=== PATIENT | female | born 1965 | race African-American/Black ===

== ENCOUNTER 2023-05-11 07:39 | Inpatient (IN) | payer OTHER ==
[2023-05-11 09:20] LABS: BASO % 0.1 % (0-2.0); HEMATOCRIT 38.1 % (32.4-45.2); HEMOGLOBIN 12.1 GM/dL (10.7-15.3); LYMPH % 5.8 % (8-40); MCH 25.8 pg (25.7-33.7); MCHC 31.7 g/dl (32.0-36.0); MEAN CELL VOLUME 81.4 fl (80-96); MEAN PLT VOLUME 9.9 fl (7.5-11.1); NEUT % 87.1 % (42.8-82.8); PLATELET COUNT 245 10^3/uL (134-434); RBC 4.68 M/mm3 (3.60-5.2); RDW 22.8 % (11.6-15.6); WHITE BLOOD COUNT 17.4 K/mm3 (4.0-10.0)
[2023-05-11 09:21] LABS: VENOUS BASE EXCESS 2.8 mmol/L (-2-2); VENOUS O2 SATURATION 96.8 % (70-80); VENOUS PCO2 36.6 mmHg (38-52); VENOUS PH 7.473 (7.310-7.410)
[2023-05-11 09:26] LABS: INR 1.18 (0.83-1.09); PROTHROMBIN TIME (PATIENT) 13.7 SEC (9.7-13.0)
[2023-05-11 09:28] LABS: ACTIVATED PTT 24.9 SECONDS (25.2-36.5)
[2023-05-11] MEDS ORDERED: ACETAMINOPHEN 1000 MG/100 ML BAG IVPB ONE (09:40)
[2023-05-11 09:52] LABS: ANISOCYTOSIS 3+; MACROCYTOSIS 1+
[2023-05-11] MEDS ORDERED: VANCOMYCIN 1,000 MG in DEXTROSE 5%-WATER - 250 ML IVPB ONE (09:55)
[2023-05-11] MEDS ORDERED: PIPERACILLIN/TAZOB 4.5 GM 4.5 GM in DEXTROSE 5%-WATER 100 ML IVPB ONE (09:55)
[2023-05-11] MEDS ORDERED: AZITHROMYCIN IVPB 500 MG in DEXTROSE 5%-WATER - 250 ML IVPB ONE (09:56)
[2023-05-11 09:59] LABS: POTASSIUM 4.9 mmol/L (3.5-5.1)
[2023-05-11 10:02] LABS: ALBUMIN 2.1 g/dl (3.4-5.0); BLOOD UREA NITROGEN 9.9 mg/dL (7-18); CALCIUM 9.6 mg/dL (8.5-10.1); MAGNESIUM 1.8 mg/dL (1.8-2.4)
[2023-05-11 10:05] LABS: CREATININE 0.4 mg/dL (0.55-1.3)
[2023-05-11 10:06] LABS: TOT PROT 6.6 g/dl (6.4-8.2)
[2023-05-11 10:07] LABS: BILIRUBIN,TOTAL 0.8 mg/dL (0.2-1)
[2023-05-11] MEDS ORDERED: ACETAMINOPHEN INJECTION 100 ML IVPB ONE (10:09)
[2023-05-11 10:10] LABS: N-TERMINAL BNP 395.7 pg/ml (5-125)
[2023-05-11] MEDS ORDERED: VANCOMYCIN 1 GRAM (PRE-DOCKED) 1,000 MG/250 ML BAG IVPB ONE (10:10)
[2023-05-11] MEDS ORDERED: PIPERACILLIN/TAZOB 4.5 GM 4.5 GM/100 ML BAG IVPB ONE (10:10)
[2023-05-11] MEDS ORDERED: AZITHROMYCIN IVPB 500 MG/250 ML BAG IVPB ONE (10:25)
[2023-05-11] MEDS ORDERED: ALBUTEROL SO4 0.042% IH SOL 1.25 MG/3 ML VIAL.NEB NEB PRN (15:46)
[2023-05-11] MEDS ORDERED: ENOXAPARIN NA (PORCINE) 40 MG/0.4 ML DISP.SYRIN SQ ONE (16:33)
[2023-05-11] MEDS: ENOXAPARIN NA (PORCINE) 40 MG/0.4 ML DISP.SYRIN SQ SCH (16:52)
[2023-05-11] MEDS ORDERED: ACETAMINOPHEN 1000 MG/100 ML BAG IVPB PRN (17:36)
[2023-05-11] MEDS ORDERED: morphine SULFATE 4 MG/ML VIAL IVPUSH PRN (17:36)
[2023-05-11] MEDS ORDERED: morphine SULFATE 4 MG/ML VIAL ONE (17:45)
[2023-05-11 17:49] LABS: EPI CELLS 4 /uL (0-25.1); HYALINE CASTS 0 /uL (0-3.1); URINE APPEARANCE CLOUDY; URINE BACTERIA 3765 /uL (0-1359); URINE BILIRUBIN NEGATIVE (NEGATIVE); URINE COLOR DK YELLOW; URINE GLUCOSE (UA) NEGATIVE (NEGATIVE); URINE KETONE NEGATIVE (NEGATIVE); URINE LEUK ESTERASE 2+ (NEGATIVE); URINE NITRITE NEGATIVE (NEGATIVE); URINE PROTEIN TRACE (NEGATIVE); URINE RBC 38 /uL (0-23.9); URINE UROBILINOGEN 0.2 mg/dL (0.2-1.0); URINE WBC 10 /uL (0-25.8)
[2023-05-11] MEDS ORDERED: oxyCODONE HCL 5 MG TABLET PO PRN (17:58)
[2023-05-11] MEDS ORDERED: oxyCODONE HCL 5 MG TABLET ONE (18:03)
[2023-05-11 18:26] LABS: URINE CRYSTALS NEGATIVE /hpf
[2023-05-11] MEDS ORDERED: DOCUSATE SODIUM 100 MG CAPSULE (FP) PO SCH (22:00)
[2023-05-11] MEDS ORDERED: ATORVASTATIN CA 40 MG TABLET (FP) PO SCH (22:00)
[2023-05-11] MEDS ORDERED: ATORVASTATIN CA 40 MG TABLET (FP) ONE (22:17)
[2023-05-11] MEDS ORDERED: DOCUSATE SODIUM 100 MG CAPSULE (FP) PO ONE (22:18)
[2023-05-11] MEDS: BUDESONIDE/FORMETEROL FUMARATE 80/4.5 mcg INHALER IH SCH (22:34)
[2023-05-12 08:30] LABS: BASO % 0.2 % (0-2.0); EOS % 0.2 % (0-4.5); HEMATOCRIT 37.4 % (32.4-45.2); HEMOGLOBIN 11.5 GM/dL (10.7-15.3); LYMPH % 4.8 % (8-40); MCH 25.6 pg (25.7-33.7); MCHC 30.8 g/dl (32.0-36.0); MEAN CELL VOLUME 83.1 fl (80-96); MEAN PLT VOLUME 9.9 fl (7.5-11.1); MONO % 5.5 % (3.8-10.2); NEUT % 89.3 % (42.8-82.8); PLATELET COUNT 224 10^3/uL (134-434); RDW 21.1 % (11.6-15.6); WHITE BLOOD COUNT 16.2 K/mm3 (4.0-10.0)
[2023-05-12 08:46] LABS: POTASSIUM 3.5 mmol/L (3.5-5.1)
[2023-05-12 08:53] LABS: ALBUMIN 2.1 g/dl (3.4-5.0); CALCIUM 9.4 mg/dL (8.5-10.1); MAGNESIUM 1.7 mg/dL (1.8-2.4)
[2023-05-12 08:56] LABS: CREATININE 0.3 mg/dL (0.55-1.3); PHOSPHOROUS 3.3 mg/dL (2.5-4.9)
[2023-05-12 08:57] LABS: BILIRUBIN,TOTAL 0.7 mg/dL (0.2-1); TOT PROT 6.3 g/dl (6.4-8.2)
[2023-05-12] MEDS ORDERED: ASPIRIN 81 MG CHEWABLE TABLETS ONE (09:50)
[2023-05-12] MEDS ORDERED: CEFTRIAXONE 1 GM in DEXTROSE 5%-WATER - 50 ML IVPB SCH (10:00)
[2023-05-12] MEDS ORDERED: ASPIRIN 81 MG CHEWABLE TABLETS PO SCH (10:00)
[2023-05-12] MEDS ORDERED: AZITHROMYCIN IVPB 250 MG in DEXTROSE 5%-WATER - 250 ML IVPB SCH (10:00)
[2023-05-12] MEDS: BUDESONIDE/FORMETEROL FUMARATE 80/4.5 mcg INHALER IH SCH (11:12)
[2023-05-12] MEDS: ENOXAPARIN NA (PORCINE) 40 MG/0.4 ML DISP.SYRIN SQ SCH (11:12)
[2023-05-12 15:12] VITALS: BP 113/70; RESP 20; TEMP 97.8; BMI 22.4
[2023-05-12] MEDS ORDERED: PIPERACILLIN/TAZOB 3.375 GM 3.375 GM in DEXTROSE 5%-WATER - 50 ML IVPB SCH ×2 (15:15→16:00)
[2023-05-12 17:05] VITALS: PULSE 105
== END 2023-05-12 17:40 | disposition short-term general hospital (02) | DRG 136 ==
LOC: JER 07:39 → JERBED 12:45 → J4W 05-12 14:03
PROVIDERS: ADMIT Internal Medicine
DX: C34.90 Malignant neoplasm of unspecified part of unspecified bronchus or lung (principal); J96.21 Acute and chronic respiratory failure with hypoxia; R64 Cachexia; Z68.22 Body mass index [BMI] 22.0-22.9, adult
CPT/HCPCS: 0241U-QW; 36415; 70450-TC; 71045-TC-FY; 71275-TC; 80053; 81003; 82803; 83690; 83735; 83880; 84100; 84484; 85025; 85610; 85730; 86850; 86870; 86900; 86901; 86902; 87040; 87070; 87186; 87205; 93005; 93010; 99285-25; Q9967

== ENCOUNTER 2023-05-27 07:42 | Inpatient (IN) | payer OTHER ==
[2023-05-27] MEDS ORDERED: ACETAMINOPHEN 1000 MG/100 ML BAG IVPB ONE (08:15)
[2023-05-27] MEDS ORDERED: VANCOMYCIN 1,000 MG in DEXTROSE 5%-WATER - 250 ML IVPB ONE (08:15)
[2023-05-27] MEDS ORDERED: PIPERACILLIN/TAZOB 4.5 GM 4.5 GM in DEXTROSE 5%-WATER 100 ML IVPB ONE (08:15)
[2023-05-27] MEDS ORDERED: SODIUM CHLORIDE 0.9% 500 ML INFUS.BAG IV ONE ×3 (08:15→09:22)
[2023-05-27] MEDS ORDERED: PROPOFOL 1,000,000 MCG/100 ML VIAL ONE (08:16)
[2023-05-27] MEDS ORDERED: ACETAMINOPHEN INJECTION 100 ML IVPB ONE (08:18)
[2023-05-27] MEDS ORDERED: PIPERACILLIN/TAZOB 4.5 GM 4.5 GM/100 ML BAG IVPB ONE (08:18)
[2023-05-27] MEDS ORDERED: ROCURONIUM BROMIDE 50 MG/5 ML VIAL IVPUSH ONE (08:20)
[2023-05-27] MEDS ORDERED: ETOMIDATE 40 MG/20 ML VIAL IVPUSH ONE (08:20)
[2023-05-27 08:22] LABS: VENOUS BASE EXCESS -2.9 mmol/L (-2-2); VENOUS O2 SATURATION 79.5 % (70-80); VENOUS PCO2 47.7 mmHg (38-52); VENOUS PH 7.312 (7.310-7.410)
[2023-05-27 08:30] LABS: INR 1.25 (0.83-1.09); PROTHROMBIN TIME (PATIENT) 14.5 SEC (9.7-13.0)
[2023-05-27 08:33] LABS: ACTIVATED PTT 24.4 SECONDS (25.2-36.5)
[2023-05-27 08:43] LABS: HEMATOCRIT 34.9 % (32.4-45.2); HEMOGLOBIN 10.4 GM/dL (10.7-15.3); MCH 25.2 pg (25.7-33.7); MCHC 29.9 g/dl (32.0-36.0); MEAN CELL VOLUME 84.2 fl (80-96); MEAN PLT VOLUME 9.7 fl (7.5-11.1); PLATELET COUNT 399 10^3/uL (134-434); RBC 4.15 M/mm3 (3.60-5.2); RDW 21.5 % (11.6-15.6); WHITE BLOOD COUNT 27.4 K/mm3 (4.0-10.0)
[2023-05-27 08:44] LABS: POTASSIUM 4.4 mmol/L (3.5-5.1)
[2023-05-27] MEDS ORDERED: PROPOFOL 1,000,000 MCG/100 ML VIAL IVPB SCH (08:45)
[2023-05-27 08:46] LABS: CALCIUM 10.1 mg/dL (8.5-10.1)
[2023-05-27 08:47] LABS: ALBUMIN 1.8 g/dl (3.4-5.0); BLOOD UREA NITROGEN 16.9 mg/dL (7-18); MAGNESIUM 1.6 mg/dL (1.8-2.4)
[2023-05-27 08:50] LABS: CREATININE 0.9 mg/dL (0.55-1.3)
[2023-05-27 08:51] LABS: TOT PROT 6.9 g/dl (6.4-8.2)
[2023-05-27 08:52] LABS: BILIRUBIN,TOTAL 0.7 mg/dL (0.2-1)
[2023-05-27 09:12] LABS: LACTIC ACID 4.6 mmol/L (0.4-2.0)
[2023-05-27] MEDS ORDERED: MIDAZOLAM IN 0.9 % SOD.CHLORID 1 MG/1 ML PLAST..BAG ONE (09:28)
[2023-05-27] MEDS: MIDAZOLAM IN 0.9 % SOD.CHLORID 100 MG/100 ML PLAST..BAG IVPB SCH (09:39)
[2023-05-27] MEDS: PANTOPRAZOLE SODIUM 40 MG VIAL IVPUSH SCH (15:27)
[2023-05-27] MEDS: VANCOMYCIN/WATER FOR INJ (PEG) 1,000 MG/200 ML BAG IVPB SCH (15:27)
[2023-05-27] MEDS: ENOXAPARIN NA (PORCINE) 40 MG/0.4 ML DISP.SYRIN SQ SCH (15:27)
[2023-05-27] MEDS ORDERED: LACTATED RINGERS SOLUTION 1000 ML INFUS.BAG IV ONE (16:00)
[2023-05-27] MEDS ORDERED: PIPERACILLIN/TAZOB 4.5 GM 4.5 GM in DEXTROSE 5%-WATER 100 ML IVPB SCH ×2 (17:00→18:00)
[2023-05-27 17:09] LABS: ARTERIAL BLD GAS O2 SATURATION 98.3 % (95-98); ARTERIAL BLOOD GAS BASE EXCESS -3.9 mmol/L (-2-2); ARTERIAL BLOOD GAS pH 7.342 (7.350-7.450)
[2023-05-27 17:12] LABS: ALLENS TEST POSITIVE
[2023-05-27 17:13] LABS: VENT MODE A/C; VENT RATE 16
[2023-05-27] MEDS: ACETAMINOPHEN 650 MG/20.3 ML ORAL SOLUTION (CUPS) PO PRN (17:57)
[2023-05-27] MEDS: PIPERACILLIN/TAZOB 3.375 GM 3.375 GM in DEXTROSE 5%-WATER - 50 ML IVPB SCH (18:27)
[2023-05-27] MEDS ORDERED: LACTATED RINGERS SOLUTION 1,000 ML/1,000 ML INFUS.BAG IV STA (19:34)
[2023-05-27] MEDS: NOREPINEPHRINE 0.9 % NACL 8 MG/250 ML BAG IVPB SCH (19:55)
[2023-05-27 20:03] LABS: LACTIC ACID 2.5 mmol/L (0.4-2.0)
[2023-05-27 20:52] LABS: EPI CELLS >36 /uL (0-25.1); HYALINE CASTS 5 /uL (0-3.1); URINE APPEARANCE TURBID; URINE BILIRUBIN NEGATIVE (NEGATIVE); URINE COLOR YELLOW; URINE GLUCOSE (UA) NEGATIVE (NEGATIVE); URINE KETONE NEGATIVE (NEGATIVE); URINE LEUK ESTERASE TRACE (NEGATIVE); URINE NITRITE NEGATIVE (NEGATIVE); URINE PROTEIN 2+ (NEGATIVE); URINE RBC 18 /uL (0-23.9); URINE UROBILINOGEN 0.2 mg/dL (0.2-1.0); URINE WBC 210 /uL (0-25.8)
[2023-05-27] MEDS: CHLORHEXIDINE GLUCONATE 4% CLEANSER FOR DECOLONIZATION TP SCH (21:20)
[2023-05-27 21:22] LABS: URINE BACTERIA 10.3 /uL (0-1359)
[2023-05-27] MEDS: MUPIROCIN 2% TOPICAL OINTMENT FOR DECOLONIZATION NS SCH (21:42)
[2023-05-28] MEDS: PIPERACILLIN/TAZOB 3.375 GM 3.375 GM in DEXTROSE 5%-WATER - 50 ML IVPB SCH ×3 (02:55→17:28)
[2023-05-28] MEDS: VANCOMYCIN/WATER FOR INJ (PEG) 1,000 MG/200 ML BAG IVPB SCH ×2 (02:59→14:05)
[2023-05-28 06:34] LABS: ARTERIAL BLOOD GAS PO2 99.2 mmHg (80-100); ARTERIAL BLOOD GAS pH 7.305 (7.350-7.450)
[2023-05-28 06:44] LABS: ALLENS TEST POSITIVE
[2023-05-28 06:45] LABS: PT'S TEMP 99.6; VENT MODE A/C; VENT RATE 16
[2023-05-28] MEDS ORDERED: SODIUM CHLORIDE 1,000 ML IV ONE (08:00)
[2023-05-28] MEDS: FENTANYL NS IVPB 500 MCG/100 ML BAG IVPB SCH ×2 (08:37→18:22)
[2023-05-28 08:53] LABS: HEMATOCRIT 31.3 % (32.4-45.2); HEMOGLOBIN 9.5 GM/dL (10.7-15.3); MCH 25.7 pg (25.7-33.7); MCHC 30.5 g/dl (32.0-36.0); MEAN CELL VOLUME 84.1 fl (80-96); MEAN PLT VOLUME 9.5 fl (7.5-11.1); PLATELET COUNT 316 10^3/uL (134-434); RBC 3.72 M/mm3 (3.60-5.2); RDW 21.7 % (11.6-15.6); WHITE BLOOD COUNT 28.1 K/mm3 (4.0-10.0)
[2023-05-28 08:55] LABS: INR 1.22 (0.83-1.09); PROTHROMBIN TIME (PATIENT) 14.1 SEC (9.7-13.0)
[2023-05-28 09:02] LABS: POTASSIUM 3.2 mmol/L (3.5-5.1)
[2023-05-28 09:07] LABS: CALCIUM 9.3 mg/dL (8.5-10.1)
[2023-05-28 09:08] LABS: ALBUMIN 1.6 g/dl (3.4-5.0); BLOOD UREA NITROGEN 22.4 mg/dL (7-18); MAGNESIUM 1.4 mg/dL (1.8-2.4)
[2023-05-28 09:09] LABS: LACTIC ACID 2.6 mmol/L (0.4-2.0)
[2023-05-28 09:11] LABS: BILIRUBIN,TOTAL 0.4 mg/dL (0.2-1); PHOSPHOROUS 4.8 mg/dL (2.5-4.9); TOT PROT 5.8 g/dl (6.4-8.2)
[2023-05-28] MEDS: MIDAZOLAM IN 0.9 % SOD.CHLORID 100 MG/100 ML PLAST..BAG IVPB SCH (09:44)
[2023-05-28] MEDS: MUPIROCIN 2% TOPICAL OINTMENT FOR DECOLONIZATION NS SCH ×2 (09:45→21:11)
[2023-05-28] MEDS: PANTOPRAZOLE SODIUM 40 MG VIAL IVPUSH SCH (09:45)
[2023-05-28] MEDS: ENOXAPARIN NA (PORCINE) 40 MG/0.4 ML DISP.SYRIN SQ SCH (09:45)
[2023-05-28] MEDS ORDERED: MAGNESIUM SULFATE IN WATER 2 GM/50 ML IVPB IVPB ONE (10:00)
[2023-05-28] MEDS ORDERED: KCL 20 MEQ PREMIX BAG 100 ML IVPB SCH (10:15)
[2023-05-28] MEDS: ACETAMINOPHEN 650 MG/20.3 ML ORAL SOLUTION (CUPS) PO PRN (11:11)
[2023-05-28 13:53] LABS: LACTIC ACID 2.4 mmol/L (0.4-2.0)
[2023-05-28] MEDS: NOREPINEPHRINE 0.9 % NACL 8 MG/250 ML BAG IVPB SCH ×2 (18:12→20:11)
[2023-05-28] MEDS: CHLORHEXIDINE GLUCONATE 4% CLEANSER FOR DECOLONIZATION TP SCH (21:12)
[2023-05-29] MEDS: PIPERACILLIN/TAZOB 3.375 GM 3.375 GM in DEXTROSE 5%-WATER - 50 ML IVPB SCH ×3 (01:14→17:25)
[2023-05-29] MEDS: VANCOMYCIN/WATER FOR INJ (PEG) 1,000 MG/200 ML BAG IVPB SCH ×2 (02:03→14:01)
[2023-05-29] MEDS: ACETAMINOPHEN 650 MG/20.3 ML ORAL SOLUTION (CUPS) PO PRN ×2 (04:50→12:23)
[2023-05-29] MEDS: FENTANYL NS IVPB 500 MCG/100 ML BAG IVPB SCH ×4 (07:05→21:56)
[2023-05-29 08:16] LABS: HEMATOCRIT 29.6 % (32.4-45.2); HEMOGLOBIN 9.2 GM/dL (10.7-15.3); MEAN CELL VOLUME 83.8 fl (80-96); MEAN PLT VOLUME 9.4 fl (7.5-11.1); PLATELET COUNT 310 10^3/uL (134-434); RBC 3.53 M/mm3 (3.60-5.2); RDW 22.8 % (11.6-15.6); WHITE BLOOD COUNT 27.7 K/mm3 (4.0-10.0)
[2023-05-29 08:32] LABS: POTASSIUM 3.3 mmol/L (3.5-5.1)
[2023-05-29 08:34] LABS: BLOOD UREA NITROGEN 28.6 mg/dL (7-18); CALCIUM 9.2 mg/dL (8.5-10.1)
[2023-05-29 08:35] LABS: ALBUMIN 1.4 g/dl (3.4-5.0)
[2023-05-29 08:38] LABS: CREATININE 1.1 mg/dL (0.55-1.3); MAGNESIUM 1.9 mg/dL (1.8-2.4); PHOSPHOROUS 3.9 mg/dL (2.5-4.9)
[2023-05-29 08:39] LABS: BILIRUBIN,TOTAL 0.3 mg/dL (0.2-1); TOT PROT 5.6 g/dl (6.4-8.2)
[2023-05-29 09:03] LABS: ANISOCYTOSIS 3+; MACROCYTOSIS 0; TARGET CELLS 1+
[2023-05-29] MEDS: MUPIROCIN 2% TOPICAL OINTMENT FOR DECOLONIZATION NS SCH ×2 (09:11→21:12)
[2023-05-29] MEDS: PANTOPRAZOLE SODIUM 40 MG VIAL IVPUSH SCH (09:11)
[2023-05-29] MEDS: ENOXAPARIN NA (PORCINE) 40 MG/0.4 ML DISP.SYRIN SQ SCH (09:11)
[2023-05-29] MEDS: DEXTROSE 5%-WATER - 1,000 ML IV SCH (09:19)
[2023-05-29] MEDS ORDERED: KCL 10 MEQ IVPB 10 MEQ/100 ML INFUS.BAG IVPB SCH (09:30)
[2023-05-29] MEDS ORDERED: KCL 20 MEQ PREMIX BAG 100 ML IVPB ONE (10:00)
[2023-05-29] MEDS: MIDAZOLAM IN 0.9 % SOD.CHLORID 100 MG/100 ML PLAST..BAG IVPB SCH (10:11)
[2023-05-29] MEDS: NOREPINEPHRINE 0.9 % NACL 8 MG/250 ML BAG IVPB SCH ×2 (10:15→21:56)
[2023-05-29] MEDS ORDERED: ACETAMINOPHEN 325 MG TABLET (FP) PO ONE (15:39)
[2023-05-29 20:09] LABS: POTASSIUM 3.2 mmol/L (3.5-5.1)
[2023-05-29 20:11] LABS: BLOOD UREA NITROGEN 33.5 mg/dL (7-18); CALCIUM 9.7 mg/dL (8.5-10.1)
[2023-05-29] MEDS ORDERED: MAGNESIUM SULFATE IN WATER 2 GM/50 ML IVPB IVPB ONE (20:14)
[2023-05-29 20:15] LABS: CREATININE 1.2 mg/dL (0.55-1.3)
[2023-05-29] MEDS: KCL 20 MEQ PREMIX BAG 100 ML IVPB SCH ×2 (20:33→22:39)
[2023-05-29] MEDS: OLANZapine 10 MG TABLET GT SCH (21:12)
[2023-05-29] MEDS: CHLORHEXIDINE GLUCONATE 4% CLEANSER FOR DECOLONIZATION TP SCH (21:12)
[2023-05-29] MEDS: ACETAMINOPHEN 650 MG/20.3 ML ORAL SOLUTION (CUPS) GT PRN (23:17)
[2023-05-30] MEDS: VANCOMYCIN/WATER FOR INJ (PEG) 1,000 MG/200 ML BAG IVPB SCH (02:28)
[2023-05-30] MEDS: PIPERACILLIN/TAZOB 3.375 GM 3.375 GM in DEXTROSE 5%-WATER - 50 ML IVPB SCH ×3 (02:28→17:39)
[2023-05-30] MEDS: ACETAMINOPHEN 650 MG/20.3 ML ORAL SOLUTION (CUPS) GT PRN ×2 (05:51→15:10)
[2023-05-30 06:23] LABS: HEMATOCRIT 29.2 % (32.4-45.2); HEMOGLOBIN 8.5 GM/dL (10.7-15.3); MCHC 29.2 g/dl (32.0-36.0); MEAN CELL VOLUME 85.7 fl (80-96); MEAN PLT VOLUME 9.4 fl (7.5-11.1); PLATELET COUNT 277 10^3/uL (134-434); RDW 23.3 % (11.6-15.6); WHITE BLOOD COUNT 24.2 K/mm3 (4.0-10.0)
[2023-05-30] MEDS: DEXTROSE 5%-WATER - 1,000 ML IV SCH (06:44)
[2023-05-30] MEDS: FENTANYL NS IVPB 500 MCG/100 ML BAG IVPB SCH ×2 (06:46→15:11)
[2023-05-30 06:48] LABS: POTASSIUM 3.8 mmol/L (3.5-5.1)
[2023-05-30 06:53] LABS: CALCIUM 9.7 mg/dL (8.5-10.1)
[2023-05-30 06:54] LABS: ALBUMIN 1.4 g/dl (3.4-5.0); BLOOD UREA NITROGEN 40.6 mg/dL (7-18); MAGNESIUM 2.5 mg/dL (1.8-2.4)
[2023-05-30 06:57] LABS: CREATININE 1.3 mg/dL (0.55-1.3); PHOSPHOROUS 4.3 mg/dL (2.5-4.9)
[2023-05-30 06:58] LABS: BILIRUBIN,TOTAL 0.3 mg/dL (0.2-1); TOT PROT 5.7 g/dl (6.4-8.2)
[2023-05-30] MEDS: LACTATED RINGERS SOLUTION 1,000 ML/1,000 ML INFUS.BAG IV SCH (08:54)
[2023-05-30] MEDS: ENOXAPARIN NA (PORCINE) 40 MG/0.4 ML DISP.SYRIN SQ SCH (09:00)
[2023-05-30] MEDS: MUPIROCIN 2% TOPICAL OINTMENT FOR DECOLONIZATION NS SCH ×2 (09:00→21:12)
[2023-05-30] MEDS: PANTOPRAZOLE SODIUM 40 MG VIAL IVPUSH SCH (09:01)
[2023-05-30 09:43] LABS: EPI CELLS >36 /uL (0-25.1); HYALINE CASTS 10 /uL (0-3.1); URINE APPEARANCE TURBID; URINE BACTERIA 7 /uL (0-1359); URINE BILIRUBIN NEGATIVE (NEGATIVE); URINE COLOR YELLOW; URINE GLUCOSE (UA) NEGATIVE (NEGATIVE); URINE KETONE NEGATIVE (NEGATIVE); URINE LEUK ESTERASE NEGATIVE (NEGATIVE); URINE NITRITE NEGATIVE (NEGATIVE); URINE PROTEIN 2+ (NEGATIVE); URINE RBC 11 /uL (0-23.9); URINE UROBILINOGEN 0.2 mg/dL (0.2-1.0)
[2023-05-30] MEDS: DEXMEDETOMIDINE PREMIX 400 MCG/100 ML BAG IVPB SCH (09:58)
[2023-05-30 10:26] LABS: URINE CRYSTALS MANY /hpf; URINE WBC 117.3 /uL (0-25.8)
[2023-05-30] MEDS: NOREPINEPHRINE 0.9 % NACL 8 MG/250 ML BAG IVPB SCH (17:40)
[2023-05-30] MEDS: OLANZapine 10 MG TABLET GT SCH (21:13)
[2023-05-30] MEDS: CHLORHEXIDINE GLUCONATE 4% CLEANSER FOR DECOLONIZATION TP SCH (21:13)
[2023-05-31] MEDS: PIPERACILLIN/TAZOB 3.375 GM 3.375 GM in DEXTROSE 5%-WATER - 50 ML IVPB SCH ×3 (01:08→17:17)
[2023-05-31] MEDS: DEXMEDETOMIDINE PREMIX 400 MCG/100 ML BAG IVPB SCH ×2 (01:09→12:24)
[2023-05-31] MEDS: NOREPINEPHRINE 0.9 % NACL 8 MG/250 ML BAG IVPB SCH ×3 (06:30→22:56)
[2023-05-31] MEDS: LACTATED RINGERS SOLUTION 1,000 ML/1,000 ML INFUS.BAG IV SCH ×2 (06:31→17:18)
[2023-05-31 07:09] LABS: POTASSIUM 3.8 mmol/L (3.5-5.1)
[2023-05-31 07:13] LABS: CALCIUM 9.5 mg/dL (8.5-10.1)
[2023-05-31 07:14] LABS: ALBUMIN 1.3 g/dl (3.4-5.0); BLOOD UREA NITROGEN 50.8 mg/dL (7-18); MAGNESIUM 2.3 mg/dL (1.8-2.4)
[2023-05-31 07:17] LABS: CREATININE 1.4 mg/dL (0.55-1.3); PHOSPHOROUS 3.9 mg/dL (2.5-4.9)
[2023-05-31 07:18] LABS: BILIRUBIN,TOTAL 0.4 mg/dL (0.2-1); TOT PROT 5.5 g/dl (6.4-8.2)
[2023-05-31 07:41] LABS: MCH 25.2 pg (25.7-33.7); MCHC 29.7 g/dl (32.0-36.0); MEAN CELL VOLUME 84.8 fl (80-96); MEAN PLT VOLUME 9.1 fl (7.5-11.1); PLATELET COUNT 224 10^3/uL (134-434); RBC 3.18 M/mm3 (3.60-5.2); RDW 22.9 % (11.6-15.6); WHITE BLOOD COUNT 21.1 K/mm3 (4.0-10.0)
[2023-05-31] MEDS ORDERED: PROPOFOL 1,000,000 MCG/100 ML VIAL ONE (08:17)
[2023-05-31] MEDS: PANTOPRAZOLE SODIUM 40 MG VIAL IVPUSH SCH (09:34)
[2023-05-31] MEDS: MUPIROCIN 2% TOPICAL OINTMENT FOR DECOLONIZATION NS SCH ×2 (09:34→23:11)
[2023-05-31] MEDS: PROPOFOL 1,000,000 MCG/100 ML VIAL IVPB SCH ×2 (09:34→23:11)
[2023-05-31] MEDS ORDERED: KCL 10 MEQ IVPB 10 MEQ/100 ML INFUS.BAG IVPB SCH (09:45)
[2023-05-31 09:51] LABS: ANISOCYTOSIS 2+; MACROCYTOSIS 0
[2023-05-31 10:09] LABS: EPI CELLS 11 /uL (0-25.1); HYALINE CASTS 1 /uL (0-3.1); PH,URINE 5.5 (5.0-8.0); URINE APPEARANCE CLEAR; URINE BACTERIA 9 /uL (0-1359); URINE BILIRUBIN NEGATIVE (NEGATIVE); URINE COLOR YELLOW; URINE GLUCOSE (UA) NEGATIVE (NEGATIVE); URINE KETONE NEGATIVE (NEGATIVE); URINE LEUK ESTERASE NEGATIVE (NEGATIVE); URINE NITRITE NEGATIVE (NEGATIVE); URINE PROTEIN 2+ (NEGATIVE); URINE RBC 14 /uL (0-23.9); URINE UROBILINOGEN 0.2 mg/dL (0.2-1.0); URINE WBC 49 /uL (0-25.8)
[2023-05-31] MEDS: KCL 20 MEQ PREMIX BAG 100 ML IVPB SCH ×2 (10:25→12:18)
[2023-05-31] MEDS ORDERED: FENTANYL IVPB 500 MCG/100 ML BAG IVPB SCH (13:00)
[2023-05-31] MEDS: ACETAMINOPHEN 650 MG/20.3 ML ORAL SOLUTION (CUPS) GT PRN (13:26)
[2023-05-31 14:28] VITALS: BMI 22.3
[2023-05-31] MEDS: AMINO ACIDS/PROTEIN HYDROLYS 30 ML LIQUID.PKT PO SCH (17:17)
[2023-05-31] MEDS: OLANZapine 10 MG TABLET GT SCH (22:56)
[2023-05-31] MEDS: CHLORHEXIDINE GLUCONATE 4% CLEANSER FOR DECOLONIZATION TP SCH (23:12)
[2023-05-31] MEDS: FENTANYL NS IVPB 500 MCG/100 ML BAG IVPB SCH (23:14)
[2023-06-01] MEDS: PIPERACILLIN/TAZOB 3.375 GM 3.375 GM in DEXTROSE 5%-WATER - 50 ML IVPB SCH ×3 (02:03→18:11)
[2023-06-01 07:21] LABS: HEMATOCRIT 26.8 % (32.4-45.2); HEMOGLOBIN 7.9 GM/dL (10.7-15.3); MCH 24.9 pg (25.7-33.7); MCHC 29.7 g/dl (32.0-36.0); MEAN CELL VOLUME 84.1 fl (80-96); MEAN PLT VOLUME 9.8 fl (7.5-11.1); PLATELET COUNT 265 10^3/uL (134-434); RBC 3.18 M/mm3 (3.60-5.2); RDW 23.1 % (11.6-15.6); WHITE BLOOD COUNT 21.7 K/mm3 (4.0-10.0)
[2023-06-01 07:32] LABS: POTASSIUM 3.9 mmol/L (3.5-5.1)
[2023-06-01 07:34] LABS: CALCIUM 9.9 mg/dL (8.5-10.1)
[2023-06-01 07:35] LABS: ALBUMIN 1.3 g/dl (3.4-5.0); BLOOD UREA NITROGEN 51.7 mg/dL (7-18)
[2023-06-01 07:38] LABS: CREATININE 1.3 mg/dL (0.55-1.3)
[2023-06-01 07:40] LABS: BILIRUBIN,TOTAL 0.3 mg/dL (0.2-1); TOT PROT 5.4 g/dl (6.4-8.2)
[2023-06-01] MEDS: AMINO ACIDS/PROTEIN HYDROLYS 30 ML LIQUID.PKT PO SCH ×2 (08:52→18:11)
[2023-06-01] MEDS: LACTATED RINGERS SOLUTION 1,000 ML/1,000 ML INFUS.BAG IV SCH ×2 (08:52→22:00)
[2023-06-01] MEDS: PROPOFOL 1,000,000 MCG/100 ML VIAL IVPB SCH (08:52)
[2023-06-01] MEDS: DEXMEDETOMIDINE PREMIX 400 MCG/100 ML BAG IVPB SCH (08:53)
[2023-06-01] MEDS: NOREPINEPHRINE 0.9 % NACL 8 MG/250 ML BAG IVPB SCH (08:53)
[2023-06-01 08:54] LABS: ANISOCYTOSIS 1+; MACROCYTOSIS 0
[2023-06-01] MEDS: PANTOPRAZOLE SODIUM 40 MG VIAL IVPUSH SCH (09:46)
[2023-06-01] MEDS: MUPIROCIN 2% TOPICAL OINTMENT FOR DECOLONIZATION NS SCH (09:46)
[2023-06-01] MEDS ORDERED: HYDROmorphone HCl 2 MG/ML VIAL IVPUSH PRN (19:47)
[2023-06-01] MEDS: CHLORHEXIDINE GLUCONATE 4% CLEANSER FOR DECOLONIZATION TP SCH (21:19)
[2023-06-01] MEDS: OLANZapine 10 MG TABLET GT SCH (22:30)
[2023-06-02] MEDS: PIPERACILLIN/TAZOB 3.375 GM 3.375 GM in DEXTROSE 5%-WATER - 50 ML IVPB SCH ×3 (01:41→17:25)
[2023-06-02] MEDS: PROPOFOL 1,000,000 MCG/100 ML VIAL IVPB SCH ×3 (01:42→17:26)
[2023-06-02] MEDS: FENTANYL NS IVPB 500 MCG/100 ML BAG IVPB SCH ×2 (01:59→04:30)
[2023-06-02 07:22] LABS: HEMATOCRIT 24.7 % (32.4-45.2); HEMOGLOBIN 7.3 GM/dL (10.7-15.3); MCH 24.7 pg (25.7-33.7); MCHC 29.6 g/dl (32.0-36.0); MEAN CELL VOLUME 83.3 fl (80-96); MEAN PLT VOLUME 9.9 fl (7.5-11.1); PLATELET COUNT 256 10^3/uL (134-434); RBC 2.97 M/mm3 (3.60-5.2); WHITE BLOOD COUNT 16.7 K/mm3 (4.0-10.0)
[2023-06-02 07:45] LABS: POTASSIUM 3.1 mmol/L (3.5-5.1)
[2023-06-02 07:51] LABS: ALBUMIN 1.2 g/dl (3.4-5.0); CALCIUM 9.7 mg/dL (8.5-10.1)
[2023-06-02 07:52] LABS: BLOOD UREA NITROGEN 49.2 mg/dL (7-18); MAGNESIUM 1.9 mg/dL (1.8-2.4)
[2023-06-02 07:55] LABS: CREATININE 1.2 mg/dL (0.55-1.3)
[2023-06-02 07:56] LABS: BILIRUBIN,TOTAL 0.4 mg/dL (0.2-1); TOT PROT 5.2 g/dl (6.4-8.2)
[2023-06-02] MEDS: LACTATED RINGERS SOLUTION 1,000 ML/1,000 ML INFUS.BAG IV SCH ×2 (08:10→17:28)
[2023-06-02] MEDS: NOREPINEPHRINE 0.9 % NACL 8 MG/250 ML BAG IVPB SCH ×2 (08:10→08:58)
[2023-06-02] MEDS: AMINO ACIDS/PROTEIN HYDROLYS 30 ML LIQUID.PKT PO SCH ×2 (08:24→17:25)
[2023-06-02] MEDS: PANTOPRAZOLE SODIUM 40 MG VIAL IVPUSH SCH (09:41)
[2023-06-02] MEDS: DEXMEDETOMIDINE PREMIX 400 MCG/100 ML BAG IVPB SCH (09:42)
[2023-06-02] MEDS: KCL 20 MEQ PREMIX BAG 100 ML IVPB SCH ×2 (10:00→11:15)
[2023-06-02] MEDS: CHLORHEXIDINE GLUCONATE 4% CLEANSER FOR DECOLONIZATION TP SCH (22:50)
[2023-06-02] MEDS: OLANZapine 10 MG TABLET GT SCH (22:50)
[2023-06-03] MEDS: PIPERACILLIN/TAZOB 3.375 GM 3.375 GM in DEXTROSE 5%-WATER - 50 ML IVPB SCH ×3 (01:28→17:04)
[2023-06-03] MEDS: LACTATED RINGERS SOLUTION 1,000 ML/1,000 ML INFUS.BAG IV SCH ×4 (03:40→23:00)
[2023-06-03 06:35] LABS: HEMATOCRIT 25.2 % (32.4-45.2); HEMOGLOBIN 7.4 GM/dL (10.7-15.3); MCH 24.7 pg (25.7-33.7); MCHC 29.5 g/dl (32.0-36.0); MEAN CELL VOLUME 83.6 fl (80-96); MEAN PLT VOLUME 9.9 fl (7.5-11.1); PLATELET COUNT 308 10^3/uL (134-434); RBC 3.01 M/mm3 (3.60-5.2); RDW 23.5 % (11.6-15.6); WHITE BLOOD COUNT 18.2 K/mm3 (4.0-10.0)
[2023-06-03] MEDS: FENTANYL NS IVPB 500 MCG/100 ML BAG IVPB SCH ×2 (06:38→23:57)
[2023-06-03] MEDS: PROPOFOL 1,000,000 MCG/100 ML VIAL IVPB SCH ×2 (06:39→08:35)
[2023-06-03 07:00] LABS: POTASSIUM 3.3 mmol/L (3.5-5.1)
[2023-06-03 07:15] LABS: ALBUMIN 1.3 g/dl (3.4-5.0); BLOOD UREA NITROGEN 41.9 mg/dL (7-18); PHOSPHOROUS 2.9 mg/dL (2.5-4.9)
[2023-06-03 07:17] LABS: BILIRUBIN,TOTAL 0.3 mg/dL (0.2-1); CALCIUM 9.2 mg/dL (8.5-10.1); CREATININE 0.9 mg/dL (0.55-1.3); TOT PROT 5.3 g/dl (6.4-8.2)
[2023-06-03 07:18] LABS: MAGNESIUM 1.6 mg/dL (1.8-2.4)
[2023-06-03] MEDS: AMINO ACIDS/PROTEIN HYDROLYS 30 ML LIQUID.PKT PO SCH ×2 (08:34→17:04)
[2023-06-03] MEDS: PANTOPRAZOLE SODIUM 40 MG VIAL IVPUSH SCH (09:10)
[2023-06-03] MEDS: NOREPINEPHRINE 0.9 % NACL 8 MG/250 ML BAG IVPB SCH (09:48)
[2023-06-03] MEDS: DEXMEDETOMIDINE PREMIX 400 MCG/100 ML BAG IVPB SCH ×2 (09:49→12:34)
[2023-06-03] MEDS: KCL 20 MEQ PREMIX BAG 100 ML IVPB SCH ×3 (10:08→12:11)
[2023-06-03] MEDS: ACETAMINOPHEN 650 MG/20.3 ML ORAL SOLUTION (CUPS) GT PRN ×2 (13:46→23:56)
[2023-06-03] MEDS: OLANZapine 10 MG TABLET GT SCH (21:29)
[2023-06-03] MEDS: CHLORHEXIDINE GLUCONATE 4% CLEANSER FOR DECOLONIZATION TP SCH (21:29)
[2023-06-04] MEDS: PIPERACILLIN/TAZOB 3.375 GM 3.375 GM in DEXTROSE 5%-WATER - 50 ML IVPB SCH ×3 (01:21→17:10)
[2023-06-04] MEDS: FENTANYL NS IVPB 500 MCG/100 ML BAG IVPB SCH (05:00)
[2023-06-04 06:15] LABS: HEMATOCRIT 25.1 % (32.4-45.2); HEMOGLOBIN 7.3 GM/dL (10.7-15.3); MCH 24.8 pg (25.7-33.7); MCHC 29.3 g/dl (32.0-36.0); MEAN CELL VOLUME 84.5 fl (80-96); MEAN PLT VOLUME 9.4 fl (7.5-11.1); PLATELET COUNT 332 10^3/uL (134-434); RBC 2.97 M/mm3 (3.60-5.2); RDW 23.5 % (11.6-15.6); WHITE BLOOD COUNT 21.6 K/mm3 (4.0-10.0)
[2023-06-04 06:37] LABS: POTASSIUM 3.9 mmol/L (3.5-5.1)
[2023-06-04 06:40] LABS: CALCIUM 9.1 mg/dL (8.5-10.1)
[2023-06-04 06:41] LABS: BLOOD UREA NITROGEN 39.2 mg/dL (7-18); MAGNESIUM 1.5 mg/dL (1.8-2.4)
[2023-06-04 06:44] LABS: PHOSPHOROUS 4.2 mg/dL (2.5-4.9)
[2023-06-04] MEDS: PANTOPRAZOLE SODIUM 40 MG VIAL IVPUSH SCH (09:23)
[2023-06-04] MEDS: LACTATED RINGERS SOLUTION 1,000 ML/1,000 ML INFUS.BAG IV SCH (09:23)
[2023-06-04] MEDS: AMINO ACIDS/PROTEIN HYDROLYS 30 ML LIQUID.PKT PO SCH ×2 (09:23→17:10)
[2023-06-04] MEDS ORDERED: MAGNESIUM SULFATE IN WATER 2 GM/50 ML IVPB IVPB ONE (09:40)
[2023-06-04] MEDS ORDERED: ENOXAPARIN NA (PORCINE) 40 MG/0.4 ML DISP.SYRIN SQ SCH (10:00)
[2023-06-04] MEDS: VANCOMYCIN/WATER FOR INJ (PEG) 1,000 MG/200 ML BAG IVPB SCH (14:33)
[2023-06-04] MEDS: DEXMEDETOMIDINE PREMIX 400 MCG/100 ML BAG IVPB SCH (17:10)
[2023-06-04] MEDS: NOREPINEPHRINE 0.9 % NACL 8 MG/250 ML BAG IVPB SCH (17:15)
[2023-06-04] MEDS: CHLORHEXIDINE GLUCONATE 4% CLEANSER FOR DECOLONIZATION TP SCH (21:09)
[2023-06-04] MEDS: OLANZapine 10 MG TABLET GT SCH (21:09)
[2023-06-04] MEDS: ACETAMINOPHEN 650 MG/20.3 ML ORAL SOLUTION (CUPS) GT PRN (21:10)
[2023-06-05] MEDS: PIPERACILLIN/TAZOB 3.375 GM 3.375 GM in DEXTROSE 5%-WATER - 50 ML IVPB SCH ×3 (02:16→18:08)
[2023-06-05] MEDS: FENTANYL NS IVPB 500 MCG/100 ML BAG IVPB SCH ×2 (02:35→21:16)
[2023-06-05 06:06] LABS: ARTERIAL BLD GAS O2 SATURATION 98.2 % (95-98); ARTERIAL BLOOD GAS BASE EXCESS -5.1 mmol/L (-2-2); ARTERIAL BLOOD GAS PO2 132.9 mmHg (80-100); ARTERIAL BLOOD GAS pH 7.261 (7.350-7.450)
[2023-06-05 06:07] LABS: VENT MODE A/C; VENT RATE 16
[2023-06-05] MEDS: ACETAMINOPHEN 650 MG/20.3 ML ORAL SOLUTION (CUPS) GT PRN (06:20)
[2023-06-05 07:21] LABS: HEMATOCRIT 22.1 % (32.4-45.2); MCH 25.2 pg (25.7-33.7); MCHC 29.8 g/dl (32.0-36.0); MEAN CELL VOLUME 84.6 fl (80-96); MEAN PLT VOLUME 9.7 fl (7.5-11.1); PLATELET COUNT 301 10^3/uL (134-434); RBC 2.62 M/mm3 (3.60-5.2); RDW 23.5 % (11.6-15.6); WHITE BLOOD COUNT 18.2 K/mm3 (4.0-10.0)
[2023-06-05 07:34] LABS: HEMOGLOBIN 6.6 GM/dL (10.7-15.3)
[2023-06-05 07:55] LABS: POTASSIUM 3.9 mmol/L (3.5-5.1)
[2023-06-05 08:00] LABS: ALBUMIN 1.2 g/dl (3.4-5.0)
[2023-06-05 08:01] LABS: BLOOD UREA NITROGEN 42.4 mg/dL (7-18)
[2023-06-05 08:02] LABS: MAGNESIUM 1.9 mg/dL (1.8-2.4)
[2023-06-05 08:03] LABS: PHOSPHOROUS 4.9 mg/dL (2.5-4.9)
[2023-06-05 08:05] LABS: BILIRUBIN,TOTAL 0.2 mg/dL (0.2-1); TOT PROT 5.1 g/dl (6.4-8.2)
[2023-06-05] MEDS ORDERED: DEXTROSE 5%-WATER - 1,000 ML IV SCH (08:30)
[2023-06-05] MEDS: PANTOPRAZOLE SODIUM 40 MG VIAL IVPUSH SCH (09:06)
[2023-06-05] MEDS: AMINO ACIDS/PROTEIN HYDROLYS 30 ML LIQUID.PKT PO SCH ×2 (09:06→18:08)
[2023-06-05] MEDS: PROPOFOL 1,000,000 MCG/100 ML VIAL IVPB SCH (11:40)
[2023-06-05] MEDS: DEXMEDETOMIDINE PREMIX 400 MCG/100 ML BAG IVPB SCH (12:52)
[2023-06-05] MEDS: VANCOMYCIN/WATER FOR INJ (PEG) 1,000 MG/200 ML BAG IVPB SCH (16:15)
[2023-06-05] MEDS: NOREPINEPHRINE BITARTRATE/D5W 8 MG/250 ML BAG IVPB SCH (21:16)
[2023-06-05] MEDS: CHLORHEXIDINE GLUCONATE 4% CLEANSER FOR DECOLONIZATION TP SCH (21:16)
[2023-06-05] MEDS: OLANZapine 10 MG TABLET GT SCH (21:16)
[2023-06-06] MEDS: PIPERACILLIN/TAZOB 3.375 GM 3.375 GM in DEXTROSE 5%-WATER - 50 ML IVPB SCH ×3 (02:43→17:03)
[2023-06-06] MEDS: FENTANYL NS IVPB 500 MCG/100 ML BAG IVPB SCH ×2 (05:12→17:01)
[2023-06-06 07:22] LABS: HEMATOCRIT 26.4 % (32.4-45.2); HEMOGLOBIN 7.8 GM/dL (10.7-15.3); MCH 25.2 pg (25.7-33.7); MCHC 29.6 g/dl (32.0-36.0); MEAN CELL VOLUME 85.1 fl (80-96); MEAN PLT VOLUME 9.7 fl (7.5-11.1); PLATELET COUNT 387 10^3/uL (134-434); RBC 3.11 M/mm3 (3.60-5.2); RDW 22.1 % (11.6-15.6); WHITE BLOOD COUNT 23.1 K/mm3 (4.0-10.0)
[2023-06-06 07:53] LABS: POTASSIUM 3.9 mmol/L (3.5-5.1)
[2023-06-06 07:56] LABS: BLOOD UREA NITROGEN 47.9 mg/dL (7-18); CALCIUM 8.8 mg/dL (8.5-10.1); MAGNESIUM 1.8 mg/dL (1.8-2.4)
[2023-06-06 07:57] LABS: ALBUMIN 1.2 g/dl (3.4-5.0)
[2023-06-06 07:59] LABS: PHOSPHOROUS 5.9 mg/dL (2.5-4.9)
[2023-06-06 08:00] LABS: CREATININE 1.1 mg/dL (0.55-1.3)
[2023-06-06 08:01] LABS: BILIRUBIN,TOTAL 0.4 mg/dL (0.2-1); TOT PROT 5.5 g/dl (6.4-8.2)
[2023-06-06] MEDS: AMINO ACIDS/PROTEIN HYDROLYS 30 ML LIQUID.PKT PO SCH ×2 (09:44→17:01)
[2023-06-06] MEDS: PANTOPRAZOLE SODIUM 40 MG VIAL IVPUSH SCH (09:44)
[2023-06-06] MEDS: DEXMEDETOMIDINE PREMIX 400 MCG/100 ML BAG IVPB SCH (09:44)
[2023-06-06] MEDS: VANCOMYCIN/WATER FOR INJ (PEG) 1,000 MG/200 ML BAG IVPB SCH (14:01)
[2023-06-06] MEDS: NOREPINEPHRINE BITARTRATE/D5W 8 MG/250 ML BAG IVPB SCH ×2 (16:58→20:25)
[2023-06-06] MEDS: PROPOFOL 1,000,000 MCG/100 ML VIAL IVPB SCH (17:00)
[2023-06-06] MEDS: ACETAMINOPHEN 650 MG/20.3 ML ORAL SOLUTION (CUPS) GT PRN (17:04)
[2023-06-06] MEDS: OLANZapine 10 MG TABLET GT SCH (21:39)
[2023-06-06] MEDS: CHLORHEXIDINE GLUCONATE 4% CLEANSER FOR DECOLONIZATION TP SCH (21:39)
[2023-06-07] MEDS: FENTANYL NS IVPB 500 MCG/100 ML BAG IVPB SCH ×4 (01:00→22:07)
[2023-06-07] MEDS: PIPERACILLIN/TAZOB 3.375 GM 3.375 GM in DEXTROSE 5%-WATER - 50 ML IVPB SCH ×3 (01:09→17:45)
[2023-06-07 07:46] LABS: HEMATOCRIT 26.1 % (32.4-45.2); HEMOGLOBIN 7.8 GM/dL (10.7-15.3); MCH 25.5 pg (25.7-33.7); MCHC 29.9 g/dl (32.0-36.0); MEAN CELL VOLUME 85.4 fl (80-96); MEAN PLT VOLUME 9.6 fl (7.5-11.1); PLATELET COUNT 399 10^3/uL (134-434); RBC 3.05 M/mm3 (3.60-5.2); WHITE BLOOD COUNT 24.2 K/mm3 (4.0-10.0)
[2023-06-07 08:15] LABS: POTASSIUM 3.9 mmol/L (3.5-5.1)
[2023-06-07 08:18] LABS: CALCIUM 9.1 mg/dL (8.5-10.1); MAGNESIUM 2.1 mg/dL (1.8-2.4)
[2023-06-07 08:20] LABS: ALBUMIN 1.2 g/dl (3.4-5.0)
[2023-06-07 08:22] LABS: PHOSPHOROUS 6.6 mg/dL (2.5-4.9)
[2023-06-07 08:23] LABS: BILIRUBIN,TOTAL 0.5 mg/dL (0.2-1); CREATININE 1.2 mg/dL (0.55-1.3); TOT PROT 5.7 g/dl (6.4-8.2)
[2023-06-07] MEDS: PANTOPRAZOLE SODIUM 40 MG VIAL IVPUSH SCH (09:28)
[2023-06-07] MEDS: AMINO ACIDS/PROTEIN HYDROLYS 30 ML LIQUID.PKT PO SCH ×2 (09:28→17:36)
[2023-06-07] MEDS: VANCOMYCIN/WATER FOR INJ (PEG) 1,000 MG/200 ML BAG IVPB SCH (13:48)
[2023-06-07] MEDS: NOREPINEPHRINE BITARTRATE/D5W 8 MG/250 ML BAG IVPB SCH ×2 (13:49→22:05)
[2023-06-07] MEDS: PROPOFOL 1,000,000 MCG/100 ML VIAL IVPB SCH (16:20)
[2023-06-07] MEDS: DEXMEDETOMIDINE PREMIX 400 MCG/100 ML BAG IVPB SCH (17:36)
[2023-06-07] MEDS: CHLORHEXIDINE GLUCONATE 4% CLEANSER FOR DECOLONIZATION TP SCH (22:05)
[2023-06-07] MEDS: OLANZapine 10 MG TABLET GT SCH (22:10)
[2023-06-08] MEDS: ACETAMINOPHEN 650 MG/20.3 ML ORAL SOLUTION (CUPS) GT PRN (00:56)
[2023-06-08] MEDS: PIPERACILLIN/TAZOB 3.375 GM 3.375 GM in DEXTROSE 5%-WATER - 50 ML IVPB SCH ×3 (01:47→19:25)
[2023-06-08] MEDS ORDERED: ACETAMINOPHEN 1000 MG/100 ML BAG IVPB ONE (03:22)
[2023-06-08 07:10] LABS: HEMATOCRIT 24.4 % (32.4-45.2); HEMOGLOBIN 7.2 GM/dL (10.7-15.3); MCH 25.1 pg (25.7-33.7); MCHC 29.5 g/dl (32.0-36.0); MEAN PLT VOLUME 9.5 fl (7.5-11.1); PLATELET COUNT 389 10^3/uL (134-434); RBC 2.87 M/mm3 (3.60-5.2); RDW 22.6 % (11.6-15.6); WHITE BLOOD COUNT 22.9 K/mm3 (4.0-10.0)
[2023-06-08 07:40] LABS: POTASSIUM 3.7 mmol/L (3.5-5.1)
[2023-06-08 07:48] LABS: CALCIUM 9.4 mg/dL (8.5-10.1); PHOSPHOROUS 6.2 mg/dL (2.5-4.9)
[2023-06-08 07:49] LABS: ALBUMIN 1.1 g/dl (3.4-5.0); BLOOD UREA NITROGEN 54.3 mg/dL (7-18); CREATININE 1.3 mg/dL (0.55-1.3)
[2023-06-08 07:50] LABS: BILIRUBIN,TOTAL 0.5 mg/dL (0.2-1); TOT PROT 5.5 g/dl (6.4-8.2)
[2023-06-08] MEDS ORDERED: DEXTROSE 50%-WATER - 25 GM/50 ML VIAL IVPUSH ONE (08:09)
[2023-06-08] MEDS ORDERED: DEXTROSE 50%-WATER 25 GM/50 ML DISP.SYRIN ONE (08:13)
[2023-06-08] MEDS ORDERED: DEXTROSE 5%-WATER - 1,000 ML IV SCH (08:15)
[2023-06-08] MEDS: AMINO ACIDS/PROTEIN HYDROLYS 30 ML LIQUID.PKT PO SCH ×2 (10:17→19:25)
[2023-06-08] MEDS: PANTOPRAZOLE SODIUM 40 MG VIAL IVPUSH SCH (10:18)
[2023-06-08] MEDS: PROPOFOL 1,000,000 MCG/100 ML VIAL IVPB SCH (13:04)
[2023-06-08] MEDS ORDERED: INSULIN (NOVOLOG) ASPART 100 UNITS/ML 10ML VIAL SQ ONE (13:40)
[2023-06-08] MEDS ORDERED: INSULIN (LEVEMIR) 100 UNITS/ML UNITS SQ ONE (13:40)
[2023-06-08] MEDS: DEXTROSE 5%-WATER - 1,000 ML IV SCH (15:57)
[2023-06-08] MEDS: DEXMEDETOMIDINE PREMIX 400 MCG/100 ML BAG IVPB SCH (15:59)
[2023-06-08 19:55] LABS: HEMATOCRIT 24.2 % (32.4-45.2); HEMOGLOBIN 7.2 GM/dL (10.7-15.3); MCH 25.1 pg (25.7-33.7); MCHC 29.7 g/dl (32.0-36.0); MEAN CELL VOLUME 84.5 fl (80-96); MEAN PLT VOLUME 9.2 fl (7.5-11.1); PLATELET COUNT 377 10^3/uL (134-434); RBC 2.86 M/mm3 (3.60-5.2); RDW 22.5 % (11.6-15.6); WHITE BLOOD COUNT 23.1 K/mm3 (4.0-10.0)
[2023-06-08] MEDS: CHLORHEXIDINE GLUCONATE 4% CLEANSER FOR DECOLONIZATION TP SCH (21:13)
[2023-06-08] MEDS: OLANZapine 10 MG TABLET GT SCH (21:14)
[2023-06-08] MEDS: NOREPINEPHRINE BITARTRATE/D5W 8 MG/250 ML BAG IVPB SCH (21:51)
[2023-06-08] MEDS: FENTANYL NS IVPB 500 MCG/100 ML BAG IVPB SCH (21:52)
[2023-06-09] MEDS: PIPERACILLIN/TAZOB 3.375 GM 3.375 GM in DEXTROSE 5%-WATER - 50 ML IVPB SCH ×2 (01:07→09:36)
[2023-06-09 08:08] LABS: HEMATOCRIT 23.6 % (32.4-45.2); MCH 25.4 pg (25.7-33.7); MCHC 29.5 g/dl (32.0-36.0); MEAN CELL VOLUME 85.8 fl (80-96); MEAN PLT VOLUME 9.6 fl (7.5-11.1); PLATELET COUNT 382 10^3/uL (134-434); RBC 2.75 M/mm3 (3.60-5.2); RDW 23.4 % (11.6-15.6); WHITE BLOOD COUNT 21.1 K/mm3 (4.0-10.0)
[2023-06-09 08:41] LABS: POTASSIUM 3.4 mmol/L (3.5-5.1)
[2023-06-09 08:43] LABS: CALCIUM 8.8 mg/dL (8.5-10.1)
[2023-06-09 08:44] LABS: ALBUMIN 1.2 g/dl (3.4-5.0); BLOOD UREA NITROGEN 53.6 mg/dL (7-18); MAGNESIUM 2.1 mg/dL (1.8-2.4)
[2023-06-09 08:47] LABS: CREATININE 1.5 mg/dL (0.55-1.3); PHOSPHOROUS 6.3 mg/dL (2.5-4.9)
[2023-06-09 08:48] LABS: BILIRUBIN,TOTAL 0.3 mg/dL (0.2-1)
[2023-06-09 08:49] LABS: TOT PROT 5.5 g/dl (6.4-8.2)
[2023-06-09] MEDS: PANTOPRAZOLE SODIUM 40 MG VIAL IVPUSH SCH (09:36)
[2023-06-09] MEDS: AMINO ACIDS/PROTEIN HYDROLYS 30 ML LIQUID.PKT PO SCH ×2 (09:36→17:55)
[2023-06-09] MEDS ORDERED: KCL 20 MEQ PREMIX BAG 100 ML IVPB ONE (10:00)
[2023-06-09] MEDS: MIDODRINE HCL 2.5 MG TABLET PO SCH ×2 (13:30→17:56)
[2023-06-09] MEDS: PROPOFOL 1,000,000 MCG/100 ML VIAL IVPB SCH (17:55)
[2023-06-09] MEDS: DEXMEDETOMIDINE PREMIX 400 MCG/100 ML BAG IVPB SCH (17:56)
[2023-06-09] MEDS: DEXTROSE 5%-WATER - 1,000 ML IV SCH (17:56)
[2023-06-09] MEDS: OLANZapine 10 MG TABLET GT SCH (21:05)
[2023-06-09] MEDS: CHLORHEXIDINE GLUCONATE 4% CLEANSER FOR DECOLONIZATION TP SCH (21:05)
[2023-06-10] MEDS: NOREPINEPHRINE BITARTRATE/D5W 8 MG/250 ML BAG IVPB SCH ×2 (06:35→21:24)
[2023-06-10] MEDS: FENTANYL NS IVPB 500 MCG/100 ML BAG IVPB SCH ×3 (06:36→21:25)
[2023-06-10] MEDS: DEXTROSE 5%-WATER - 1,000 ML IV SCH (07:30)
[2023-06-10] MEDS ORDERED: POTASSIUM CHLORIDE ORAL LIQUID 20 MEQ/15 ML PO ONE (09:00)
[2023-06-10] MEDS: AMINO ACIDS/PROTEIN HYDROLYS 30 ML LIQUID.PKT PO SCH ×2 (09:45→18:22)
[2023-06-10] MEDS: CEFTRIAXONE 2 GM in DEXTROSE 5%-WATER 100 ML IVPB SCH (09:46)
[2023-06-10] MEDS: PANTOPRAZOLE SODIUM 40 MG VIAL IVPUSH SCH (09:49)
[2023-06-10] MEDS: MIDODRINE HCL 2.5 MG TABLET PO SCH (09:50)
[2023-06-10] MEDS: MIDODRINE HCL 5 MG TABLET PO SCH ×2 (12:15→21:40)
[2023-06-10] MEDS: PROPOFOL 1,000,000 MCG/100 ML VIAL IVPB SCH (15:00)
[2023-06-10] MEDS: DEXMEDETOMIDINE PREMIX 400 MCG/100 ML BAG IVPB SCH (21:22)
[2023-06-10] MEDS: CHLORHEXIDINE GLUCONATE 4% CLEANSER FOR DECOLONIZATION TP SCH (21:25)
[2023-06-10] MEDS: OLANZapine 10 MG TABLET GT SCH (21:40)
[2023-06-11] MEDS: MIDODRINE HCL 5 MG TABLET PO SCH ×3 (03:37→17:41)
[2023-06-11 08:10] LABS: POTASSIUM 3.7 mmol/L (3.5-5.1)
[2023-06-11 08:13] LABS: CALCIUM 8.4 mg/dL (8.5-10.1)
[2023-06-11 08:14] LABS: ALBUMIN 1.1 g/dl (3.4-5.0); BLOOD UREA NITROGEN 58.7 mg/dL (7-18); MAGNESIUM 2.1 mg/dL (1.8-2.4)
[2023-06-11 08:17] LABS: CREATININE 1.4 mg/dL (0.55-1.3); PHOSPHOROUS 5.9 mg/dL (2.5-4.9)
[2023-06-11 08:19] LABS: BILIRUBIN,TOTAL 0.9 mg/dL (0.2-1); HEMATOCRIT 22.4 % (32.4-45.2); MCH 25.4 pg (25.7-33.7); MCHC 29.7 g/dl (32.0-36.0); MEAN CELL VOLUME 85.5 fl (80-96); MEAN PLT VOLUME 9.7 fl (7.5-11.1); PLATELET COUNT 338 10^3/uL (134-434); RBC 2.62 M/mm3 (3.60-5.2); RDW 23.2 % (11.6-15.6); TOT PROT 5.4 g/dl (6.4-8.2); WHITE BLOOD COUNT 19.1 K/mm3 (4.0-10.0)
[2023-06-11 08:33] LABS: HEMOGLOBIN 6.6 GM/dL (10.7-15.3)
[2023-06-11 09:12] LABS: ANISOCYTOSIS 2+; MACROCYTOSIS 0
[2023-06-11] MEDS: CEFTRIAXONE 2 GM in DEXTROSE 5%-WATER 100 ML IVPB SCH (09:49)
[2023-06-11] MEDS: PANTOPRAZOLE SODIUM 40 MG VIAL IVPUSH SCH (09:49)
[2023-06-11] MEDS: AMINO ACIDS/PROTEIN HYDROLYS 30 ML LIQUID.PKT PO SCH ×2 (09:49→17:40)
[2023-06-11] MEDS: DEXMEDETOMIDINE PREMIX 400 MCG/100 ML BAG IVPB SCH (09:50)
[2023-06-11] MEDS: FENTANYL NS IVPB 500 MCG/100 ML BAG IVPB SCH ×3 (11:50→22:16)
[2023-06-11] MEDS: PROPOFOL 1,000,000 MCG/100 ML VIAL IVPB SCH (11:53)
[2023-06-11] MEDS: ACETAMINOPHEN 650 MG/20.3 ML ORAL SOLUTION (CUPS) GT PRN (12:40)
[2023-06-11] MEDS: OLANZapine 10 MG TABLET GT SCH (21:59)
[2023-06-11] MEDS: CHLORHEXIDINE GLUCONATE 4% CLEANSER FOR DECOLONIZATION TP SCH (21:59)
[2023-06-12] MEDS: MIDODRINE HCL 5 MG TABLET PO SCH ×3 (01:43→17:35)
[2023-06-12] MEDS: PROPOFOL 1,000,000 MCG/100 ML VIAL IVPB SCH ×2 (01:51→12:57)
[2023-06-12 06:32] LABS: ARTERIAL BLD GAS O2 SATURATION 94.5 % (95-98); ARTERIAL BLOOD GAS BASE EXCESS -8.4 mmol/L (-2-2); ARTERIAL BLOOD GAS PO2 87.9 mmHg (80-100); ARTERIAL BLOOD GAS pH 7.197 (7.350-7.450)
[2023-06-12 06:34] LABS: ALLENS TEST POSITIVE
[2023-06-12 06:36] LABS: VENT MODE A/C; VENT RATE 16
[2023-06-12 07:14] LABS: HEMATOCRIT 21.7 % (32.4-45.2); MCH 24.9 pg (25.7-33.7); MCHC 29.2 g/dl (32.0-36.0); MEAN CELL VOLUME 85.3 fl (80-96); MEAN PLT VOLUME 9.6 fl (7.5-11.1); PLATELET COUNT 330 10^3/uL (134-434); RBC 2.54 M/mm3 (3.60-5.2); RDW 23.5 % (11.6-15.6); WHITE BLOOD COUNT 20.5 K/mm3 (4.0-10.0)
[2023-06-12 07:24] LABS: INR 1.15 (0.83-1.09); PROTHROMBIN TIME (PATIENT) 13.3 SEC (9.7-13.0)
[2023-06-12 07:27] LABS: ACTIVATED PTT 28.9 SECONDS (25.2-36.5)
[2023-06-12 07:30] LABS: HEMOGLOBIN 6.3 GM/dL (10.7-15.3)
[2023-06-12 07:31] LABS: POTASSIUM 3.6 mmol/L (3.5-5.1)
[2023-06-12 07:34] LABS: BLOOD UREA NITROGEN 57.8 mg/dL (7-18); CALCIUM 8.3 mg/dL (8.5-10.1)
[2023-06-12 07:35] LABS: ALBUMIN 1.2 g/dl (3.4-5.0)
[2023-06-12 07:37] LABS: BILIRUBIN,DIRECT 0.1 mg/dL (0.0-0.2); CREATININE 1.4 mg/dL (0.55-1.3); PHOSPHOROUS 5.9 mg/dL (2.5-4.9)
[2023-06-12 07:39] LABS: BILIRUBIN,TOTAL 0.3 mg/dL (0.2-1); TOT PROT 5.2 g/dl (6.4-8.2)
[2023-06-12] MEDS: AMINO ACIDS/PROTEIN HYDROLYS 30 ML LIQUID.PKT PO SCH ×2 (09:54→17:35)
[2023-06-12] MEDS: PANTOPRAZOLE SODIUM 40 MG VIAL IVPUSH SCH (09:54)
[2023-06-12] MEDS: CEFTRIAXONE 2 GM in DEXTROSE 5%-WATER 100 ML IVPB SCH (09:55)
[2023-06-12] MEDS: DEXMEDETOMIDINE PREMIX 400 MCG/100 ML BAG IVPB SCH (09:56)
[2023-06-12] MEDS: FENTANYL NS IVPB 500 MCG/100 ML BAG IVPB SCH ×2 (11:45→22:37)
[2023-06-12 12:59] LABS: ARTERIAL BLD GAS O2 SATURATION 93.9 % (95-98); ARTERIAL BLOOD GAS BASE EXCESS -6.9 mmol/L (-2-2); ARTERIAL BLOOD GAS pH 7.282 (7.350-7.450)
[2023-06-12 13:02] LABS: ALLENS TEST POSITIVE
[2023-06-12 13:03] LABS: VENT MODE A/C; VENT RATE 16
[2023-06-12] MEDS: ACETAMINOPHEN 1000 MG/100 ML BAG IVPB PRN (13:33)
[2023-06-12] MEDS: CHLORHEXIDINE GLUCONATE 4% CLEANSER FOR DECOLONIZATION TP SCH (22:37)
[2023-06-12] MEDS: OLANZapine 10 MG TABLET GT SCH (22:37)
[2023-06-13] MEDS: MIDODRINE HCL 5 MG TABLET PO SCH ×3 (02:46→18:11)
[2023-06-13] MEDS: ACETAMINOPHEN 1000 MG/100 ML BAG IVPB PRN (03:16)
[2023-06-13 06:13] LABS: HEMATOCRIT 21.1 % (32.4-45.2); MCH 24.6 pg (25.7-33.7); MCHC 29.4 g/dl (32.0-36.0); MEAN CELL VOLUME 83.7 fl (80-96); MEAN PLT VOLUME 9.5 fl (7.5-11.1); PLATELET COUNT 323 10^3/uL (134-434); RBC 2.52 M/mm3 (3.60-5.2); RDW 23.4 % (11.6-15.6); WHITE BLOOD COUNT 22.8 K/mm3 (4.0-10.0)
[2023-06-13 06:29] LABS: HEMOGLOBIN 6.2 GM/dL (10.7-15.3)
[2023-06-13 06:52] LABS: POTASSIUM 3.5 mmol/L (3.5-5.1)
[2023-06-13 06:54] LABS: CALCIUM 8.2 mg/dL (8.5-10.1)
[2023-06-13 06:55] LABS: ALBUMIN 1.1 g/dl (3.4-5.0); BLOOD UREA NITROGEN 63.7 mg/dL (7-18); MAGNESIUM 2.2 mg/dL (1.8-2.4)
[2023-06-13 06:58] LABS: CREATININE 1.4 mg/dL (0.55-1.3); PHOSPHOROUS 5.7 mg/dL (2.5-4.9)
[2023-06-13 06:59] LABS: BILIRUBIN,TOTAL 0.3 mg/dL (0.2-1)
[2023-06-13 07:00] LABS: TOT PROT 5.2 g/dl (6.4-8.2)
[2023-06-13] MEDS ORDERED: IRON SUCROSE INJECTION 200 MG in SODIUM CHLORIDE 90 ML IVPB ONE (09:00)
[2023-06-13] MEDS: CEFTRIAXONE 2 GM in DEXTROSE 5%-WATER 100 ML IVPB SCH (09:42)
[2023-06-13] MEDS: AMINO ACIDS/PROTEIN HYDROLYS 30 ML LIQUID.PKT PO SCH ×2 (09:43→18:11)
[2023-06-13] MEDS: PANTOPRAZOLE SODIUM 40 MG VIAL IVPUSH SCH (09:43)
[2023-06-13] MEDS: FENTANYL NS IVPB 500 MCG/100 ML BAG IVPB SCH ×2 (09:44→22:42)
[2023-06-13] MEDS: DEXMEDETOMIDINE PREMIX 400 MCG/100 ML BAG IVPB SCH (09:44)
[2023-06-13] MEDS: PROPOFOL 1,000,000 MCG/100 ML VIAL IVPB SCH (12:21)
[2023-06-13] MEDS: OLANZapine 10 MG TABLET GT SCH (21:15)
[2023-06-13] MEDS: CHLORHEXIDINE GLUCONATE 4% CLEANSER FOR DECOLONIZATION TP SCH (21:15)
[2023-06-14] MEDS ORDERED: MIDODRINE HCL 5 MG TABLET PO ONE (00:22)
[2023-06-14 08:19] LABS: HEMATOCRIT 23.6 % (32.4-45.2); HEMOGLOBIN 7.1 GM/dL (10.7-15.3); MCH 25.6 pg (25.7-33.7); MEAN CELL VOLUME 85.4 fl (80-96); MEAN PLT VOLUME 10.3 fl (7.5-11.1); PLATELET COUNT 331 10^3/uL (134-434); RBC 2.76 M/mm3 (3.60-5.2); RDW 22.8 % (11.6-15.6); WHITE BLOOD COUNT 25.1 K/mm3 (4.0-10.0)
[2023-06-14 08:33] LABS: CALCIUM 8.5 mg/dL (8.5-10.1)
[2023-06-14 08:34] LABS: ALBUMIN 1.1 g/dl (3.4-5.0)
[2023-06-14 08:35] LABS: MAGNESIUM 2.2 mg/dL (1.8-2.4)
[2023-06-14 08:37] LABS: CREATININE 1.3 mg/dL (0.55-1.3); PHOSPHOROUS 6.7 mg/dL (2.5-4.9)
[2023-06-14 08:37] LABS: ARTERIAL BLD GAS O2 SATURATION 94.7 % (95-98); ARTERIAL BLOOD GAS BASE EXCESS -8.5 mmol/L (-2-2); ARTERIAL BLOOD GAS PO2 86.2 mmHg (80-100); ARTERIAL BLOOD GAS pH 7.223 (7.350-7.450)
[2023-06-14 08:38] LABS: BILIRUBIN,TOTAL 0.4 mg/dL (0.2-1); TOT PROT 5.5 g/dl (6.4-8.2)
[2023-06-14 08:50] LABS: ALLENS TEST POSITIVE
[2023-06-14 08:51] LABS: VENT MODE V/AC; VENT RATE 16
[2023-06-14] MEDS ORDERED: VANCOMYCIN/WATER FOR INJ (PEG) 1,000 MG/200 ML BAG IVPB ONE (09:15)
[2023-06-14] MEDS: PANTOPRAZOLE SODIUM 40 MG VIAL IVPUSH SCH (09:46)
[2023-06-14] MEDS: MIDODRINE HCL 5 MG TABLET PO SCH ×3 (09:46→23:41)
[2023-06-14] MEDS: CEFTRIAXONE 2 GM in DEXTROSE 5%-WATER 100 ML IVPB SCH (09:46)
[2023-06-14] MEDS: AMINO ACIDS/PROTEIN HYDROLYS 30 ML LIQUID.PKT PO SCH ×2 (09:47→17:11)
[2023-06-14] MEDS: DEXMEDETOMIDINE PREMIX 400 MCG/100 ML BAG IVPB SCH (12:55)
[2023-06-14] MEDS: PROPOFOL 1,000,000 MCG/100 ML VIAL IVPB SCH (12:55)
[2023-06-14] MEDS: FENTANYL NS IVPB 500 MCG/100 ML BAG IVPB SCH ×3 (12:56→22:15)
[2023-06-14] MEDS: OLANZapine 10 MG TABLET GT SCH (21:19)
[2023-06-14] MEDS: CHLORHEXIDINE GLUCONATE 4% CLEANSER FOR DECOLONIZATION TP SCH (21:19)
[2023-06-15] MEDS: FENTANYL NS IVPB 500 MCG/100 ML BAG IVPB SCH ×3 (06:55→23:03)
[2023-06-15 08:41] LABS: HEMATOCRIT 23.1 % (32.4-45.2); MCH 25.4 pg (25.7-33.7); MCHC 29.6 g/dl (32.0-36.0); MEAN CELL VOLUME 86.1 fl (80-96); MEAN PLT VOLUME 10.2 fl (7.5-11.1); PLATELET COUNT 341 10^3/uL (134-434); RBC 2.69 M/mm3 (3.60-5.2); RDW 22.6 % (11.6-15.6); WHITE BLOOD COUNT 23.3 K/mm3 (4.0-10.0)
[2023-06-15 08:49] LABS: POTASSIUM 4.2 mmol/L (3.5-5.1)
[2023-06-15] MEDS: MIDODRINE HCL 5 MG TABLET PO SCH ×3 (08:58→23:02)
[2023-06-15] MEDS: AMINO ACIDS/PROTEIN HYDROLYS 30 ML LIQUID.PKT PO SCH ×2 (08:59→16:53)
[2023-06-15 09:00] LABS: ALBUMIN 1.2 g/dl (3.4-5.0); BLOOD UREA NITROGEN 70.2 mg/dL (7-18); MAGNESIUM 2.4 mg/dL (1.8-2.4)
[2023-06-15] MEDS: CEFTRIAXONE 2 GM in DEXTROSE 5%-WATER 100 ML IVPB SCH (09:02)
[2023-06-15] MEDS: PANTOPRAZOLE SODIUM 40 MG VIAL IVPUSH SCH (09:02)
[2023-06-15 09:03] LABS: CREATININE 1.4 mg/dL (0.55-1.3); PHOSPHOROUS 7.4 mg/dL (2.5-4.9)
[2023-06-15 09:04] LABS: BILIRUBIN,TOTAL 0.4 mg/dL (0.2-1); TOT PROT 5.7 g/dl (6.4-8.2)
[2023-06-15 09:05] LABS: HEMOGLOBIN 6.8 GM/dL (10.7-15.3)
[2023-06-15] MEDS: PROPOFOL 1,000,000 MCG/100 ML VIAL IVPB SCH (12:34)
[2023-06-15] MEDS: DEXMEDETOMIDINE PREMIX 400 MCG/100 ML BAG IVPB SCH (12:34)
[2023-06-15] MEDS: SEVELAMER CARBONATE 0.8 GM POWDER PACKET GT SCH (16:53)
[2023-06-15] MEDS: OLANZapine 10 MG TABLET GT SCH (21:17)
[2023-06-15] MEDS: CHLORHEXIDINE GLUCONATE 4% CLEANSER FOR DECOLONIZATION TP SCH (21:17)
[2023-06-16] MEDS: PROPOFOL 1,000,000 MCG/100 ML VIAL IVPB SCH (04:58)
[2023-06-16] MEDS: FENTANYL NS IVPB 500 MCG/100 ML BAG IVPB SCH ×2 (04:59→21:24)
[2023-06-16 07:35] LABS: HEMATOCRIT 26.6 % (32.4-45.2); MCH 25.8 pg (25.7-33.7); MCHC 30.1 g/dl (32.0-36.0); MEAN CELL VOLUME 85.9 fl (80-96); MEAN PLT VOLUME 10.2 fl (7.5-11.1); PLATELET COUNT 349 10^3/uL (134-434); RBC 3.09 M/mm3 (3.60-5.2); RDW 20.6 % (11.6-15.6); WHITE BLOOD COUNT 19.7 K/mm3 (4.0-10.0)
[2023-06-16 08:35] LABS: POTASSIUM 4.5 mmol/L (3.5-5.1)
[2023-06-16 08:44] LABS: BLOOD UREA NITROGEN 76.6 mg/dL (7-18)
[2023-06-16 08:48] LABS: CALCIUM 9.1 mg/dL (8.5-10.1)
[2023-06-16 08:49] LABS: ALBUMIN 1.2 g/dl (3.4-5.0)
[2023-06-16 08:50] LABS: MAGNESIUM 2.4 mg/dL (1.8-2.4)
[2023-06-16 08:52] LABS: CREATININE 1.7 mg/dL (0.55-1.3); PHOSPHOROUS 7.9 mg/dL (2.5-4.9)
[2023-06-16 08:53] LABS: BILIRUBIN,TOTAL 0.4 mg/dL (0.2-1); TOT PROT 5.9 g/dl (6.4-8.2)
[2023-06-16] MEDS: CEFTRIAXONE 2 GM in DEXTROSE 5%-WATER 100 ML IVPB SCH (09:05)
[2023-06-16] MEDS: SEVELAMER CARBONATE 0.8 GM POWDER PACKET GT SCH ×3 (09:05→18:14)
[2023-06-16] MEDS: MIDODRINE HCL 5 MG TABLET PO SCH ×3 (09:05→23:12)
[2023-06-16] MEDS: AMINO ACIDS/PROTEIN HYDROLYS 30 ML LIQUID.PKT PO SCH ×2 (09:06→18:14)
[2023-06-16] MEDS: PANTOPRAZOLE SODIUM 40 MG VIAL IVPUSH SCH (09:06)
[2023-06-16] MEDS ORDERED: VANCOMYCIN/WATER FOR INJ (PEG) 1,000 MG/200 ML BAG IVPB ONE (11:50)
[2023-06-16] MEDS: CHLORHEXIDINE GLUCONATE 4% CLEANSER FOR DECOLONIZATION TP SCH (21:25)
[2023-06-16] MEDS: OLANZapine 10 MG TABLET GT SCH (21:26)
[2023-06-16] MEDS: DEXMEDETOMIDINE PREMIX 400 MCG/100 ML BAG IVPB SCH (23:13)
[2023-06-17] MEDS: PROPOFOL 1,000,000 MCG/100 ML VIAL IVPB SCH ×2 (05:37→18:29)
[2023-06-17] MEDS: FENTANYL NS IVPB 500 MCG/100 ML BAG IVPB SCH ×3 (05:38→21:30)
[2023-06-17 07:27] LABS: HEMATOCRIT 25.8 % (32.4-45.2); HEMOGLOBIN 7.9 GM/dL (10.7-15.3); MCH 26.3 pg (25.7-33.7); MCHC 30.5 g/dl (32.0-36.0); MEAN CELL VOLUME 86.1 fl (80-96); MEAN PLT VOLUME 10.1 fl (7.5-11.1); PLATELET COUNT 351 10^3/uL (134-434); RDW 20.5 % (11.6-15.6); WHITE BLOOD COUNT 18.9 K/mm3 (4.0-10.0)
[2023-06-17 08:01] LABS: POTASSIUM 4.8 mmol/L (3.5-5.1)
[2023-06-17] MEDS: MIDODRINE HCL 5 MG TABLET PO SCH ×3 (08:03→23:00)
[2023-06-17] MEDS: AMINO ACIDS/PROTEIN HYDROLYS 30 ML LIQUID.PKT PO SCH ×2 (08:03→16:54)
[2023-06-17] MEDS: SEVELAMER CARBONATE 0.8 GM POWDER PACKET GT SCH ×3 (08:04→16:54)
[2023-06-17 08:09] LABS: ALBUMIN 1.3 g/dl (3.4-5.0); BLOOD UREA NITROGEN 81.3 mg/dL (7-18)
[2023-06-17 08:10] LABS: BILIRUBIN,TOTAL 0.4 mg/dL (0.2-1); TOT PROT 5.9 g/dl (6.4-8.2)
[2023-06-17 08:12] LABS: CALCIUM 8.6 mg/dL (8.5-10.1); CREATININE 1.8 mg/dL (0.55-1.3); MAGNESIUM 2.4 mg/dL (1.8-2.4)
[2023-06-17] MEDS: PANTOPRAZOLE SODIUM 40 MG VIAL IVPUSH SCH (09:04)
[2023-06-17] MEDS: CEFTRIAXONE 2 GM in DEXTROSE 5%-WATER 100 ML IVPB SCH (09:04)
[2023-06-17] MEDS: DEXMEDETOMIDINE PREMIX 400 MCG/100 ML BAG IVPB SCH (11:09)
[2023-06-17] MEDS: CHLORHEXIDINE GLUCONATE 4% CLEANSER FOR DECOLONIZATION TP SCH (21:29)
[2023-06-17] MEDS: OLANZapine 10 MG TABLET GT SCH (21:30)
[2023-06-18 07:24] LABS: HEMATOCRIT 26.2 % (32.4-45.2); HEMOGLOBIN 7.9 GM/dL (10.7-15.3); MCH 26.1 pg (25.7-33.7); MCHC 30.3 g/dl (32.0-36.0); MEAN CELL VOLUME 86.2 fl (80-96); MEAN PLT VOLUME 9.7 fl (7.5-11.1); PLATELET COUNT 371 10^3/uL (134-434); RBC 3.04 M/mm3 (3.60-5.2); RDW 20.7 % (11.6-15.6); WHITE BLOOD COUNT 18.2 K/mm3 (4.0-10.0)
[2023-06-18] MEDS: PROPOFOL 1,000,000 MCG/100 ML VIAL IVPB SCH ×3 (07:24→21:09)
[2023-06-18] MEDS: NOREPINEPHRINE BITARTRATE/D5W 8 MG/250 ML BAG IVPB SCH ×2 (07:25→21:08)
[2023-06-18 07:33] LABS: POTASSIUM 4.7 mmol/L (3.5-5.1)
[2023-06-18 07:37] LABS: CALCIUM 8.7 mg/dL (8.5-10.1)
[2023-06-18 07:38] LABS: ALBUMIN 1.3 g/dl (3.4-5.0); BLOOD UREA NITROGEN 89.1 mg/dL (7-18)
[2023-06-18 07:41] LABS: CREATININE 2.1 mg/dL (0.55-1.3)
[2023-06-18 07:42] LABS: BILIRUBIN,TOTAL 0.4 mg/dL (0.2-1); TOT PROT 6.1 g/dl (6.4-8.2)
[2023-06-18 07:52] LABS: ADD RBC MORPHOLOGY YES
[2023-06-18] MEDS: MIDODRINE HCL 5 MG TABLET PO SCH ×3 (08:40→23:07)
[2023-06-18] MEDS: SEVELAMER CARBONATE 0.8 GM POWDER PACKET GT SCH ×3 (08:40→16:33)
[2023-06-18] MEDS: AMINO ACIDS/PROTEIN HYDROLYS 30 ML LIQUID.PKT PO SCH ×2 (08:40→16:33)
[2023-06-18] MEDS: PANTOPRAZOLE SODIUM 40 MG VIAL IVPUSH SCH (09:05)
[2023-06-18] MEDS: CEFTRIAXONE 2 GM in DEXTROSE 5%-WATER 100 ML IVPB SCH (09:05)
[2023-06-18] MEDS: DEXMEDETOMIDINE PREMIX 400 MCG/100 ML BAG IVPB SCH (11:00)
[2023-06-18 11:04] LABS: ANISOCYTOSIS 3+; MACROCYTOSIS 0; TARGET CELLS 1+
[2023-06-18] MEDS: SODIUM CHLORIDE 1,000 ML IV SCH (12:05)
[2023-06-18] MEDS: FENTANYL NS IVPB 500 MCG/100 ML BAG IVPB SCH ×3 (13:14→23:06)
[2023-06-18] MEDS: CHLORHEXIDINE GLUCONATE 4% CLEANSER FOR DECOLONIZATION TP SCH (21:08)
[2023-06-18] MEDS: OLANZapine 10 MG TABLET GT SCH (21:14)
[2023-06-19] MEDS: NOREPINEPHRINE BITARTRATE/D5W 8 MG/250 ML BAG IVPB SCH ×3 (00:30→23:04)
[2023-06-19] MEDS: PROPOFOL 1,000,000 MCG/100 ML VIAL IVPB SCH ×3 (05:54→23:04)
[2023-06-19] MEDS: FENTANYL NS IVPB 500 MCG/100 ML BAG IVPB SCH ×4 (05:54→23:05)
[2023-06-19 07:54] LABS: POTASSIUM 4.8 mmol/L (3.5-5.1)
[2023-06-19 08:05] LABS: BLOOD UREA NITROGEN 98.7 mg/dL (7-18); CALCIUM 8.4 mg/dL (8.5-10.1)
[2023-06-19 08:06] LABS: ALBUMIN 1.4 g/dl (3.4-5.0)
[2023-06-19 08:08] LABS: HEMATOCRIT 26.5 % (32.4-45.2); MCH 25.9 pg (25.7-33.7); MEAN CELL VOLUME 86.4 fl (80-96); MEAN PLT VOLUME 9.6 fl (7.5-11.1); PLATELET COUNT 380 10^3/uL (134-434); RBC 3.07 M/mm3 (3.60-5.2); RDW 21.2 % (11.6-15.6); WHITE BLOOD COUNT 17.3 K/mm3 (4.0-10.0)
[2023-06-19 08:09] LABS: CREATININE 2.1 mg/dL (0.55-1.3)
[2023-06-19 08:10] LABS: BILIRUBIN,TOTAL 0.6 mg/dL (0.2-1)
[2023-06-19] MEDS: AMINO ACIDS/PROTEIN HYDROLYS 30 ML LIQUID.PKT PO SCH ×2 (08:49→17:01)
[2023-06-19] MEDS: MIDODRINE HCL 5 MG TABLET PO SCH ×3 (08:49→23:05)
[2023-06-19] MEDS: SEVELAMER CARBONATE 0.8 GM POWDER PACKET GT SCH ×3 (08:49→17:02)
[2023-06-19 08:59] LABS: ANISOCYTOSIS 2+; MACROCYTOSIS 0
[2023-06-19] MEDS: PANTOPRAZOLE SODIUM 40 MG VIAL IVPUSH SCH (09:00)
[2023-06-19] MEDS: CEFTRIAXONE 2 GM in DEXTROSE 5%-WATER 100 ML IVPB SCH (09:00)
[2023-06-19 09:38] LABS: VENOUS BASE EXCESS -14.5 mmol/L (-2-2); VENOUS O2 SATURATION 97.7 % (70-80); VENOUS PCO2 46.9 mmHg (38-52)
[2023-06-19 09:43] LABS: VENOUS PH 7.103 (7.310-7.410)
[2023-06-19] MEDS: ARTIFICIAL TEARS OPHTHALMIC DROPS OU SCH ×2 (10:47→21:11)
[2023-06-19] MEDS: SODIUM CHLORIDE 1,000 ML IV SCH (17:01)
[2023-06-19] MEDS ORDERED: SODIUM BICARBONATE 8.4% 50 MEQ/50 ML DISP.SYRIN IVPUSH ONE ×2 (19:20→23:40)
[2023-06-19] MEDS: HYDROCORTISONE SOD SUCCINATE 100 MG/2 ML VIAL IVPUSH SCH (19:49)
[2023-06-19] MEDS: VASopressin 40 UNITS/100 ML BAG IV SCH (19:49)
[2023-06-19] MEDS: CHLORHEXIDINE GLUCONATE 4% CLEANSER FOR DECOLONIZATION TP SCH (21:11)
[2023-06-19] MEDS: OLANZapine 10 MG TABLET GT SCH (21:12)
[2023-06-19 23:37] LABS: ARTERIAL BLD GAS O2 SATURATION 71.6 % (95-98); ARTERIAL BLOOD GAS BASE EXCESS -18.1 mmol/L (-2-2); ARTERIAL BLOOD GAS PO2 62.7 mmHg (80-100)
[2023-06-19 23:38] LABS: VENT MODE A/C; VENT RATE 16
[2023-06-19 23:39] LABS: ARTERIAL BLOOD GAS pH 6.889 (7.350-7.450)
[2023-06-19] MEDS ORDERED: DEXTROSE 5%-WATER - 1,000 ML with SODIUM BICARBONATE 8.4% - 150 MEQ IV SCH (23:45)
[2023-06-20] MEDS: NOREPINEPHRINE BITARTRATE/D5W 8 MG/250 ML BAG IVPB SCH ×3 (00:30→15:34)
[2023-06-20] MEDS: HYDROCORTISONE SOD SUCCINATE 100 MG/2 ML VIAL IVPUSH SCH ×3 (02:25→17:43)
[2023-06-20] MEDS: PROPOFOL 1,000,000 MCG/100 ML VIAL IVPB SCH ×3 (06:00→21:11)
[2023-06-20] MEDS: FENTANYL NS IVPB 500 MCG/100 ML BAG IVPB SCH ×5 (06:01→21:12)
[2023-06-20 06:40] LABS: ARTERIAL BLD GAS O2 SATURATION 82.7 % (95-98); ARTERIAL BLOOD GAS BASE EXCESS -13.3 mmol/L (-2-2); ARTERIAL BLOOD GAS PO2 63.8 mmHg (80-100)
[2023-06-20 06:41] LABS: ALLENS TEST POSITIVE
[2023-06-20 06:42] LABS: VENT MODE A/C; VENT RATE 26
[2023-06-20 06:43] LABS: ARTERIAL BLOOD GAS pH 7.081 (7.350-7.450)
[2023-06-20 07:53] LABS: POTASSIUM 4.3 mmol/L (3.5-5.1)
[2023-06-20 07:55] LABS: CALCIUM 7.9 mg/dL (8.5-10.1); MAGNESIUM 2.2 mg/dL (1.8-2.4)
[2023-06-20 07:58] LABS: ALBUMIN 1.4 g/dl (3.4-5.0); BLOOD UREA NITROGEN 96.2 mg/dL (7-18); PHOSPHOROUS 8.2 mg/dL (2.5-4.9)
[2023-06-20 07:59] LABS: CREATININE 2.2 mg/dL (0.55-1.3)
[2023-06-20 08:00] LABS: BILIRUBIN,TOTAL 0.4 mg/dL (0.2-1); TOT PROT 5.8 g/dl (6.4-8.2)
[2023-06-20 08:15] LABS: HEMATOCRIT 25.4 % (32.4-45.2); HEMOGLOBIN 7.6 GM/dL (10.7-15.3); MCH 25.8 pg (25.7-33.7); MCHC 29.8 g/dl (32.0-36.0); MEAN CELL VOLUME 86.5 fl (80-96); MEAN PLT VOLUME 9.8 fl (7.5-11.1); PLATELET COUNT 370 10^3/uL (134-434); RBC 2.94 M/mm3 (3.60-5.2); RDW 20.7 % (11.6-15.6); WHITE BLOOD COUNT 18.4 K/mm3 (4.0-10.0)
[2023-06-20] MEDS: SEVELAMER CARBONATE 0.8 GM POWDER PACKET GT SCH ×3 (09:26→17:43)
[2023-06-20] MEDS: PANTOPRAZOLE SODIUM 40 MG VIAL IVPUSH SCH (09:26)
[2023-06-20] MEDS: CEFTRIAXONE 2 GM in DEXTROSE 5%-WATER 100 ML IVPB SCH (09:26)
[2023-06-20] MEDS: ARTIFICIAL TEARS OPHTHALMIC DROPS OU SCH ×2 (09:27→21:13)
[2023-06-20] MEDS: AMINO ACIDS/PROTEIN HYDROLYS 30 ML LIQUID.PKT PO SCH ×2 (09:27→17:44)
[2023-06-20] MEDS: SODIUM BICARBONATE IV SCH ×2 (10:53→17:45)
[2023-06-20] MEDS: WATER IV SCH ×2 (10:53→17:45)
[2023-06-20] MEDS: DEXTROSE 5% IV SCH ×2 (10:53→17:45)
[2023-06-20] MEDS: MIDODRINE HCL 5 MG TABLET PO SCH ×3 (12:11→23:40)
[2023-06-20] MEDS: VASopressin 40 UNITS/100 ML BAG IV SCH ×2 (17:44→19:30)
[2023-06-20] MEDS: OLANZapine 10 MG TABLET GT SCH (21:12)
[2023-06-20] MEDS: CHLORHEXIDINE GLUCONATE 4% CLEANSER FOR DECOLONIZATION TP SCH (21:14)
[2023-06-21] MEDS: HYDROCORTISONE SOD SUCCINATE 100 MG/2 ML VIAL IVPUSH SCH ×3 (01:13→17:26)
[2023-06-21] MEDS: NOREPINEPHRINE BITARTRATE/D5W 8 MG/250 ML BAG IVPB SCH (01:14)
[2023-06-21] MEDS: PROPOFOL 1,000,000 MCG/100 ML VIAL IVPB SCH ×4 (01:14→14:15)
[2023-06-21] MEDS: DEXTROSE 5% IV SCH ×3 (01:14→21:03)
[2023-06-21] MEDS: WATER IV SCH ×3 (01:14→21:03)
[2023-06-21] MEDS: SODIUM BICARBONATE IV SCH ×3 (01:14→21:03)
[2023-06-21] MEDS: FENTANYL NS IVPB 500 MCG/100 ML BAG IVPB SCH ×4 (01:15→14:15)
[2023-06-21 06:15] LABS: HEMATOCRIT 22.5 % (32.4-45.2); MCH 25.8 pg (25.7-33.7); MCHC 30.4 g/dl (32.0-36.0); MEAN CELL VOLUME 84.7 fl (80-96); MEAN PLT VOLUME 9.2 fl (7.5-11.1); PLATELET COUNT 317 10^3/uL (134-434); RBC 2.66 M/mm3 (3.60-5.2); RDW 20.6 % (11.6-15.6); WHITE BLOOD COUNT 18.1 K/mm3 (4.0-10.0)
[2023-06-21 06:25] LABS: HEMOGLOBIN 6.8 GM/dL (10.7-15.3)
[2023-06-21 06:27] LABS: POTASSIUM 3.6 mmol/L (3.5-5.1)
[2023-06-21 06:31] LABS: BLOOD UREA NITROGEN 97.7 mg/dL (7-18); CALCIUM 7.6 mg/dL (8.5-10.1)
[2023-06-21 06:32] LABS: ALBUMIN 1.3 g/dl (3.4-5.0)
[2023-06-21 06:34] LABS: VENOUS BASE EXCESS -11.3 mmol/L (-2-2); VENOUS O2 SATURATION 86.8 % (70-80); VENOUS PCO2 55.1 mmHg (38-52)
[2023-06-21 06:34] LABS: PHOSPHOROUS 7.9 mg/dL (2.5-4.9)
[2023-06-21 06:35] LABS: CREATININE 2.5 mg/dL (0.55-1.3)
[2023-06-21 06:36] LABS: BILIRUBIN,TOTAL 0.4 mg/dL (0.2-1); TOT PROT 5.3 g/dl (6.4-8.2)
[2023-06-21 06:37] LABS: VENOUS PH 7.119 (7.310-7.410)
[2023-06-21] MEDS: AMINO ACIDS/PROTEIN HYDROLYS 30 ML LIQUID.PKT PO SCH ×2 (07:48→17:26)
[2023-06-21] MEDS: MIDODRINE HCL 5 MG TABLET PO SCH ×3 (07:49→23:35)
[2023-06-21] MEDS: SEVELAMER CARBONATE 0.8 GM POWDER PACKET GT SCH ×3 (07:49→17:25)
[2023-06-21] MEDS: CEFTRIAXONE 2 GM in DEXTROSE 5%-WATER 100 ML IVPB SCH (09:31)
[2023-06-21] MEDS: ARTIFICIAL TEARS OPHTHALMIC DROPS OU SCH ×2 (09:32→21:02)
[2023-06-21] MEDS: PANTOPRAZOLE SODIUM 40 MG VIAL IVPUSH SCH (09:32)
[2023-06-21 09:54] LABS: ANISOCYTOSIS 2+; MACROCYTOSIS 0
[2023-06-21] MEDS: VASopressin 40 UNITS/100 ML BAG IV SCH (12:00)
[2023-06-21] MEDS: OLANZapine 10 MG TABLET GT SCH (21:02)
[2023-06-21] MEDS: CHLORHEXIDINE GLUCONATE 4% CLEANSER FOR DECOLONIZATION TP SCH (21:02)
[2023-06-22] MEDS: HYDROCORTISONE SOD SUCCINATE 100 MG/2 ML VIAL IVPUSH SCH ×3 (01:50→17:42)
[2023-06-22 07:02] LABS: HEMATOCRIT 22.5 % (32.4-45.2); MCH 25.9 pg (25.7-33.7); MCHC 30.6 g/dl (32.0-36.0); MEAN CELL VOLUME 84.6 fl (80-96); MEAN PLT VOLUME 9.5 fl (7.5-11.1); PLATELET COUNT 306 10^3/uL (134-434); RBC 2.66 M/mm3 (3.60-5.2); RDW 20.6 % (11.6-15.6); WHITE BLOOD COUNT 20.1 K/mm3 (4.0-10.0)
[2023-06-22 07:16] LABS: HEMOGLOBIN 6.9 GM/dL (10.7-15.3)
[2023-06-22 07:18] LABS: CALCIUM 7.6 mg/dL (8.5-10.1)
[2023-06-22 07:19] LABS: ALBUMIN 1.4 g/dl (3.4-5.0); BLOOD UREA NITROGEN 102.9 mg/dL (7-18); MAGNESIUM 2.2 mg/dL (1.8-2.4)
[2023-06-22 07:22] LABS: CREATININE 2.5 mg/dL (0.55-1.3)
[2023-06-22 07:23] LABS: BILIRUBIN,TOTAL 0.3 mg/dL (0.2-1)
[2023-06-22 07:24] LABS: TOT PROT 5.4 g/dl (6.4-8.2)
[2023-06-22 07:26] LABS: PHOSPHOROUS 8.1 mg/dL (2.5-4.9)
[2023-06-22] MEDS: KCL 20 MEQ PREMIX BAG 100 ML IVPB SCH ×3 (08:58→12:13)
[2023-06-22] MEDS: WATER IV SCH ×3 (08:58→17:42)
[2023-06-22] MEDS: DEXTROSE 5% IV SCH ×3 (08:58→17:42)
[2023-06-22] MEDS: SEVELAMER CARBONATE 0.8 GM POWDER PACKET GT SCH ×3 (08:58→17:42)
[2023-06-22] MEDS: AMINO ACIDS/PROTEIN HYDROLYS 30 ML LIQUID.PKT PO SCH ×2 (08:58→17:42)
[2023-06-22] MEDS: MIDODRINE HCL 5 MG TABLET PO SCH ×3 (08:58→23:29)
[2023-06-22] MEDS: SODIUM BICARBONATE IV SCH ×3 (08:58→17:42)
[2023-06-22] MEDS: NOREPINEPHRINE BITARTRATE/D5W 8 MG/250 ML BAG IVPB SCH ×2 (08:59→16:04)
[2023-06-22] MEDS: VASopressin 40 UNITS/100 ML BAG IV SCH ×2 (08:59→21:23)
[2023-06-22] MEDS: ARTIFICIAL TEARS OPHTHALMIC DROPS OU SCH ×2 (08:59→21:22)
[2023-06-22] MEDS: CEFTRIAXONE 2 GM in DEXTROSE 5%-WATER 100 ML IVPB SCH (09:13)
[2023-06-22] MEDS: PANTOPRAZOLE SODIUM 40 MG VIAL IVPUSH SCH (09:13)
[2023-06-22] MEDS: PROPOFOL 1,000,000 MCG/100 ML VIAL IVPB SCH ×2 (12:21→23:28)
[2023-06-22] MEDS: FENTANYL NS IVPB 500 MCG/100 ML BAG IVPB SCH ×2 (12:21→23:28)
[2023-06-22] MEDS: OLANZapine 10 MG TABLET GT SCH (21:22)
[2023-06-22] MEDS: CHLORHEXIDINE GLUCONATE 4% CLEANSER FOR DECOLONIZATION TP SCH (21:22)
[2023-06-23] MEDS: VASopressin 40 UNITS/100 ML BAG IV SCH ×2 (00:05→19:37)
[2023-06-23] MEDS: HYDROCORTISONE SOD SUCCINATE 100 MG/2 ML VIAL IVPUSH SCH ×3 (01:40→17:33)
[2023-06-23] MEDS: SODIUM BICARBONATE IV SCH ×3 (01:42→19:37)
[2023-06-23] MEDS: DEXTROSE 5% IV SCH ×3 (01:42→19:37)
[2023-06-23] MEDS: WATER IV SCH ×3 (01:42→19:37)
[2023-06-23] MEDS ORDERED: fentaNYL CITRATE 250 MCG/5 ML VIAL ONE (04:55)
[2023-06-23] MEDS: FENTANYL NS IVPB 500 MCG/100 ML BAG IVPB SCH ×4 (05:07→19:35)
[2023-06-23] MEDS: PROPOFOL 1,000,000 MCG/100 ML VIAL IVPB SCH ×3 (05:08→19:36)
[2023-06-23] MEDS: NOREPINEPHRINE BITARTRATE/D5W 8 MG/250 ML BAG IVPB SCH ×3 (05:11→19:34)
[2023-06-23 07:42] LABS: HEMATOCRIT 24.4 % (32.4-45.2); HEMOGLOBIN 7.6 GM/dL (10.7-15.3); MCH 26.3 pg (25.7-33.7); MCHC 31.3 g/dl (32.0-36.0); MEAN PLT VOLUME 9.6 fl (7.5-11.1); PLATELET COUNT 301 10^3/uL (134-434); RDW 20.1 % (11.6-15.6); WHITE BLOOD COUNT 22.1 K/mm3 (4.0-10.0)
[2023-06-23 09:07] LABS: CHLORIDE 84 mmol/L (98-107); POTASSIUM 4.1 mmol/L (3.5-5.1); SODIUM 124 mmol/L (136-145)
[2023-06-23] MEDS: MIDODRINE HCL 5 MG TABLET PO SCH ×2 (09:09→15:56)
[2023-06-23] MEDS: PANTOPRAZOLE SODIUM 40 MG VIAL IVPUSH SCH (09:10)
[2023-06-23] MEDS: CEFTRIAXONE 2 GM in DEXTROSE 5%-WATER 100 ML IVPB SCH (09:10)
[2023-06-23] MEDS: AMINO ACIDS/PROTEIN HYDROLYS 30 ML LIQUID.PKT PO SCH ×2 (09:10→17:32)
[2023-06-23] MEDS: SEVELAMER CARBONATE 0.8 GM POWDER PACKET GT SCH ×3 (09:10→17:32)
[2023-06-23] MEDS: ARTIFICIAL TEARS OPHTHALMIC DROPS OU SCH ×2 (09:10→21:29)
[2023-06-23 09:16] LABS: ALBUMIN 1.3 g/dl (3.4-5.0)
[2023-06-23 09:17] LABS: ANION GAP 17 mmol/L (4-13); CO2 23 mmol/L (21-32); GLUCOSE,RANDOM 99 mg/dL (74-106)
[2023-06-23 09:19] LABS: CREATININE 2.6 mg/dL (0.55-1.3); SGOT/AST 81 U/L (15-37); SGPT/ALT 19 U/L (13-61)
[2023-06-23 09:20] LABS: BILIRUBIN,TOTAL 0.4 mg/dL (0.2-1); TOT PROT 5.2 g/dl (6.4-8.2)
[2023-06-23 09:22] LABS: ALK PHOS 296 U/L (45-117); CALCIUM 7.7 mg/dL (8.5-10.1)
[2023-06-23 09:28] LABS: MAGNESIUM 2.2 mg/dL (1.8-2.4)
[2023-06-23 09:31] LABS: BLOOD UREA NITROGEN 111.2 mg/dL (7-18)
[2023-06-23 10:02] LABS: PHOSPHOROUS 8.9 mg/dL (2.5-4.9)
[2023-06-23] MEDS ORDERED: INSULIN (NOVOLOG) ASPART 100 UNITS/ML 10ML VIAL ONE (12:00)
[2023-06-23] MEDS: CHLORHEXIDINE GLUCONATE 4% CLEANSER FOR DECOLONIZATION TP SCH (21:28)
[2023-06-23] MEDS: OLANZapine 10 MG TABLET GT SCH (21:28)
[2023-06-24] MEDS: MIDODRINE HCL 5 MG TABLET PO SCH ×4 (00:29→23:21)
[2023-06-24] MEDS: NOREPINEPHRINE BITARTRATE/D5W 8 MG/250 ML BAG IVPB SCH ×4 (01:15→19:42)
[2023-06-24] MEDS: DEXTROSE 5% IV SCH ×3 (01:16→21:28)
[2023-06-24] MEDS: HYDROCORTISONE SOD SUCCINATE 100 MG/2 ML VIAL IVPUSH SCH ×3 (01:16→17:18)
[2023-06-24] MEDS: WATER IV SCH ×3 (01:16→21:28)
[2023-06-24] MEDS: PROPOFOL 1,000,000 MCG/100 ML VIAL IVPB SCH ×4 (01:16→19:41)
[2023-06-24] MEDS: SODIUM BICARBONATE IV SCH ×3 (01:16→21:28)
[2023-06-24] MEDS: FENTANYL NS IVPB 500 MCG/100 ML BAG IVPB SCH ×5 (01:16→19:42)
[2023-06-24] MEDS: SEVELAMER CARBONATE 0.8 GM POWDER PACKET GT SCH ×2 (08:32→16:48)
[2023-06-24] MEDS: AMINO ACIDS/PROTEIN HYDROLYS 30 ML LIQUID.PKT PO SCH ×2 (08:33→16:47)
[2023-06-24] MEDS: PANTOPRAZOLE SODIUM 40 MG VIAL IVPUSH SCH (09:06)
[2023-06-24] MEDS: CEFTRIAXONE 2 GM in DEXTROSE 5%-WATER 100 ML IVPB SCH (09:06)
[2023-06-24] MEDS: ARTIFICIAL TEARS OPHTHALMIC DROPS OU SCH ×2 (09:07→21:30)
[2023-06-24] MEDS: VASopressin 40 UNITS/100 ML BAG IV SCH (19:30)
[2023-06-24] MEDS: OLANZapine 10 MG TABLET GT SCH (21:27)
[2023-06-24] MEDS: CHLORHEXIDINE GLUCONATE 4% CLEANSER FOR DECOLONIZATION TP SCH (21:29)
[2023-06-25] MEDS: SODIUM BICARBONATE IV SCH ×3 (01:15→18:31)
[2023-06-25] MEDS: WATER IV SCH ×3 (01:15→18:31)
[2023-06-25] MEDS: DEXTROSE 5% IV SCH ×3 (01:15→18:31)
[2023-06-25] MEDS: HYDROCORTISONE SOD SUCCINATE 100 MG/2 ML VIAL IVPUSH SCH ×3 (02:30→18:30)
[2023-06-25] MEDS: PROPOFOL 1,000,000 MCG/100 ML VIAL IVPB SCH ×3 (02:31→15:25)
[2023-06-25] MEDS: NOREPINEPHRINE BITARTRATE/D5W 8 MG/250 ML BAG IVPB SCH ×2 (02:31→12:15)
[2023-06-25] MEDS: VASopressin 40 UNITS/100 ML BAG IV SCH ×2 (06:30→21:25)
[2023-06-25 07:28] LABS: HEMATOCRIT 23.2 % (32.4-45.2); HEMOGLOBIN 7.2 GM/dL (10.7-15.3); MCH 25.7 pg (25.7-33.7); MEAN PLT VOLUME 9.9 fl (7.5-11.1); PLATELET COUNT 243 10^3/uL (134-434); RBC 2.79 M/mm3 (3.60-5.2); RDW 20.3 % (11.6-15.6); WHITE BLOOD COUNT 25.2 K/mm3 (4.0-10.0)
[2023-06-25 07:47] LABS: CHLORIDE 75 mmol/L (98-107); POTASSIUM 4.1 mmol/L (3.5-5.1); SODIUM 121 mmol/L (136-145)
[2023-06-25 07:56] LABS: ALBUMIN 1.2 g/dl (3.4-5.0); ANION GAP 24 mmol/L (4-13); CO2 23 mmol/L (21-32); GLUCOSE,RANDOM 134 mg/dL (74-106)
[2023-06-25 07:58] LABS: CREATININE 2.6 mg/dL (0.55-1.3)
[2023-06-25 08:00] LABS: BILIRUBIN,TOTAL 1.3 mg/dL (0.2-1); SGPT/ALT 432 U/L (13-61); TOT PROT 4.6 g/dl (6.4-8.2)
[2023-06-25] MEDS: AMINO ACIDS/PROTEIN HYDROLYS 30 ML LIQUID.PKT PO SCH ×2 (09:09→18:30)
[2023-06-25] MEDS: CEFTRIAXONE 2 GM in DEXTROSE 5%-WATER 100 ML IVPB SCH (09:09)
[2023-06-25] MEDS: MIDODRINE HCL 5 MG TABLET PO SCH ×3 (09:10→23:01)
[2023-06-25] MEDS: ARTIFICIAL TEARS OPHTHALMIC DROPS OU SCH ×2 (09:10→21:25)
[2023-06-25] MEDS: PANTOPRAZOLE SODIUM 40 MG VIAL IVPUSH SCH (09:10)
[2023-06-25] MEDS: SEVELAMER CARBONATE 0.8 GM POWDER PACKET GT SCH ×3 (09:10→18:31)
[2023-06-25] MEDS: FENTANYL NS IVPB 500 MCG/100 ML BAG IVPB SCH ×3 (09:11→22:00)
[2023-06-25 09:13] LABS: ALK PHOS 388 U/L (45-117); CALCIUM 6.7 mg/dL (8.5-10.1); SGOT/AST 1531 U/L (15-37)
[2023-06-25 09:30] LABS: PHOSPHOROUS 10.4 mg/dL (2.5-4.9)
[2023-06-25] MEDS ORDERED: BUMETANIDE INJECTION 1 MG/4 ML VIAL IVPUSH ONE (09:30)
[2023-06-25] MEDS: CHLORHEXIDINE GLUCONATE 4% CLEANSER FOR DECOLONIZATION TP SCH (21:25)
[2023-06-25] MEDS: OLANZapine 10 MG TABLET GT SCH (22:58)
[2023-06-26] MEDS ORDERED: NOREPINEPHRINE BITARTRATE 4 MG/4 ML ML IV ONE ×2 (00:58→06:13)
[2023-06-26] MEDS: DEXTROSE 5% IV SCH ×3 (01:10→18:49)
[2023-06-26] MEDS: NOREPINEPHRINE BITARTRATE/D5W 8 MG/250 ML BAG IVPB SCH ×2 (01:10→12:47)
[2023-06-26] MEDS: SODIUM BICARBONATE IV SCH ×3 (01:10→18:49)
[2023-06-26] MEDS: WATER IV SCH ×3 (01:10→18:49)
[2023-06-26] MEDS: HYDROCORTISONE SOD SUCCINATE 100 MG/2 ML VIAL IVPUSH SCH ×3 (01:13→17:02)
[2023-06-26] MEDS: PROPOFOL 1,000,000 MCG/100 ML VIAL IVPB SCH ×4 (03:00→21:14)
[2023-06-26 07:21] LABS: CHLORIDE 72 mmol/L (98-107)
[2023-06-26 07:23] LABS: CO2 25 mmol/L (21-32)
[2023-06-26 07:25] LABS: GLUCOSE,RANDOM 128 mg/dL (74-106); MAGNESIUM 1.9 mg/dL (1.8-2.4)
[2023-06-26 07:28] LABS: CREATININE 2.6 mg/dL (0.55-1.3)
[2023-06-26 07:53] LABS: ANION GAP 21 mmol/L (4-13); BLOOD UREA NITROGEN 113.5 mg/dL (7-18); CALCIUM 6.5 mg/dL (8.5-10.1); LACTIC ACID 6.5 mmol/L (0.4-2.0); PHOSPHOROUS 9.7 mg/dL (2.5-4.9); SODIUM 119 mmol/L (136-145)
[2023-06-26 08:19] LABS: MCH 25.6 pg (25.7-33.7); MCHC 31.9 g/dl (32.0-36.0); MEAN CELL VOLUME 80.5 fl (80-96); MEAN PLT VOLUME 10.1 fl (7.5-11.1); PLATELET COUNT 202 10^3/uL (134-434); RBC 2.73 M/mm3 (3.60-5.2); RDW 19.6 % (11.6-15.6); WHITE BLOOD COUNT 24.7 K/mm3 (4.0-10.0)
[2023-06-26] MEDS: FENTANYL NS IVPB 500 MCG/100 ML BAG IVPB SCH ×5 (08:40→23:33)
[2023-06-26] MEDS: MIDODRINE HCL 5 MG TABLET PO SCH ×4 (09:35→23:33)
[2023-06-26] MEDS: SEVELAMER CARBONATE 0.8 GM POWDER PACKET GT SCH ×3 (09:35→17:02)
[2023-06-26] MEDS: CEFTRIAXONE 2 GM in DEXTROSE 5%-WATER 100 ML IVPB SCH (09:35)
[2023-06-26] MEDS: PANTOPRAZOLE SODIUM 40 MG VIAL IVPUSH SCH (09:35)
[2023-06-26] MEDS: AMINO ACIDS/PROTEIN HYDROLYS 30 ML LIQUID.PKT PO SCH ×2 (09:35→17:02)
[2023-06-26] MEDS: ARTIFICIAL TEARS OPHTHALMIC DROPS OU SCH ×2 (09:36→21:16)
[2023-06-26] MEDS ORDERED: FUROSEMIDE 40 MG/4 ML INJECTABLE VIAL IVPUSH ONE (10:30)
[2023-06-26] MEDS: VASopressin 40 UNITS/100 ML BAG IV SCH (12:46)
[2023-06-26] MEDS ORDERED: DEXTROSE 50%-WATER 25 GM/50 ML DISP.SYRIN IVPUSH PRN (14:56)
[2023-06-26] MEDS: OLANZapine 10 MG TABLET GT SCH (21:16)
[2023-06-26] MEDS: CHLORHEXIDINE GLUCONATE 4% CLEANSER FOR DECOLONIZATION TP SCH (21:17)
[2023-06-27] MEDS: SODIUM BICARBONATE IV SCH ×2 (01:33→09:04)
[2023-06-27] MEDS: WATER IV SCH ×2 (01:33→09:04)
[2023-06-27] MEDS: DEXTROSE 5% IV SCH ×2 (01:33→09:04)
[2023-06-27] MEDS: HYDROCORTISONE SOD SUCCINATE 100 MG/2 ML VIAL IVPUSH SCH ×3 (01:33→17:16)
[2023-06-27] MEDS: NOREPINEPHRINE BITARTRATE/D5W 8 MG/250 ML BAG IVPB SCH ×4 (01:34→23:28)
[2023-06-27] MEDS: FENTANYL NS IVPB 500 MCG/100 ML BAG IVPB SCH ×6 (02:49→20:41)
[2023-06-27] MEDS: PROPOFOL 1,000,000 MCG/100 ML VIAL IVPB SCH ×3 (06:33→20:53)
[2023-06-27 06:53] LABS: MCH 25.8 pg (25.7-33.7); MEAN CELL VOLUME 80.8 fl (80-96); PLATELET COUNT 176 10^3/uL (134-434); RBC 2.59 M/mm3 (3.60-5.2)
[2023-06-27 07:01] LABS: CHLORIDE 70 mmol/L (98-107); POTASSIUM 3.6 mmol/L (3.5-5.1)
[2023-06-27 07:05] LABS: ALBUMIN 1.2 g/dl (3.4-5.0); CO2 27 mmol/L (21-32); GLUCOSE,RANDOM 135 mg/dL (74-106); HEMOGLOBIN 6.7 GM/dL (10.7-15.3); MAGNESIUM 1.7 mg/dL (1.8-2.4)
[2023-06-27 07:09] LABS: CREATININE 2.5 mg/dL (0.55-1.3); SGPT/ALT 760 U/L (13-61); TOT PROT 4.3 g/dl (6.4-8.2)
[2023-06-27 07:21] LABS: ALK PHOS 427 U/L (45-117); ANION GAP 21 mmol/L (4-13); BLOOD UREA NITROGEN 108.4 mg/dL (7-18); SGOT/AST 1076 U/L (15-37); SODIUM 118 mmol/L (136-145)
[2023-06-27 07:35] LABS: PHOSPHOROUS > 9.0 mg/dL (2.5-4.9)
[2023-06-27] MEDS: VASopressin 40 UNITS/100 ML BAG IV SCH ×2 (07:42→20:53)
[2023-06-27] MEDS ORDERED: FUROSEMIDE 100 MG/10 ML INJECTABLE VIAL IVPB ONE (08:07)
[2023-06-27 08:17] LABS: ANISOCYTOSIS 3+; MACROCYTOSIS 0; TARGET CELLS 2+
[2023-06-27] MEDS ORDERED: FUROSEMIDE 40 MG/4 ML INJECTABLE VIAL ONE (08:27)
[2023-06-27] MEDS: PANTOPRAZOLE SODIUM 40 MG VIAL IVPUSH SCH (09:03)
[2023-06-27] MEDS: CEFTRIAXONE 2 GM in DEXTROSE 5%-WATER 100 ML IVPB SCH (09:03)
[2023-06-27] MEDS: AMINO ACIDS/PROTEIN HYDROLYS 30 ML LIQUID.PKT PO SCH ×2 (09:03→17:16)
[2023-06-27] MEDS: MIDODRINE HCL 5 MG TABLET PO SCH ×3 (09:03→23:28)
[2023-06-27] MEDS: SEVELAMER CARBONATE 0.8 GM POWDER PACKET GT SCH ×3 (09:03→17:17)
[2023-06-27] MEDS: ARTIFICIAL TEARS OPHTHALMIC DROPS OU SCH ×2 (09:04→21:03)
[2023-06-27] MEDS ORDERED: RAPID SEQUENCE INTUBATION KIT NR ONE (11:03)
[2023-06-27 12:54] LABS: HEMATOCRIT 21.7 % (32.4-45.2); MCH 25.4 pg (25.7-33.7); MCHC 31.9 g/dl (32.0-36.0); MEAN CELL VOLUME 79.6 fl (80-96); MEAN PLT VOLUME 9.7 fl (7.5-11.1); PLATELET COUNT 169 10^3/uL (134-434); RBC 2.72 M/mm3 (3.60-5.2); RDW 19.5 % (11.6-15.6)
[2023-06-27 12:58] LABS: WHITE BLOOD COUNT 27.3 K/mm3 (4.0-10.0)
[2023-06-27 13:05] LABS: HEMOGLOBIN 6.9 GM/dL (10.7-15.3)
[2023-06-27 13:18] LABS: ANISOCYTOSIS 3+; MACROCYTOSIS 0; TARGET CELLS 1+
[2023-06-27 13:25] LABS: CHLORIDE 69 mmol/L (98-107); POTASSIUM 3.6 mmol/L (3.5-5.1)
[2023-06-27 13:28] LABS: ALBUMIN 1.2 g/dl (3.4-5.0); CO2 28 mmol/L (21-32); GLUCOSE,RANDOM 117 mg/dL (74-106)
[2023-06-27 13:31] LABS: CREATININE 2.5 mg/dL (0.55-1.3); SGOT/AST 845 U/L (15-37); SGPT/ALT 703 U/L (13-61)
[2023-06-27 13:33] LABS: BILIRUBIN,TOTAL 0.9 mg/dL (0.2-1); TOT PROT 4.4 g/dl (6.4-8.2)
[2023-06-27 13:34] LABS: ALK PHOS 442 U/L (45-117); ANION GAP 20 mmol/L (4-13); BLOOD UREA NITROGEN 109.1 mg/dL (7-18); CALCIUM 6.1 mg/dL (8.5-10.1); SODIUM 118 mmol/L (136-145)
[2023-06-27] MEDS: CHLORHEXIDINE GLUCONATE 4% CLEANSER FOR DECOLONIZATION TP SCH (21:03)
[2023-06-27] MEDS: OLANZapine 10 MG TABLET GT SCH (21:05)
[2023-06-28] MEDS: FENTANYL NS IVPB 500 MCG/100 ML BAG IVPB SCH ×7 (00:01→21:03)
[2023-06-28] MEDS: VASopressin 40 UNITS/100 ML BAG IV SCH ×2 (01:35→18:32)
[2023-06-28] MEDS: PROPOFOL 1,000,000 MCG/100 ML VIAL IVPB SCH ×6 (01:55→21:04)
[2023-06-28] MEDS: NOREPINEPHRINE BITARTRATE/D5W 8 MG/250 ML BAG IVPB SCH ×4 (02:34→21:02)
[2023-06-28] MEDS: HYDROCORTISONE SOD SUCCINATE 100 MG/2 ML VIAL IVPUSH SCH ×3 (02:47→17:04)
[2023-06-28 06:54] LABS: VENOUS BASE EXCESS -0.8 mmol/L (-2-2); VENOUS O2 SATURATION 72.1 % (70-80); VENOUS PH 7.206 (7.310-7.410)
[2023-06-28 06:57] LABS: VENOUS PCO2 71.3 mmHg (38-52)
[2023-06-28 07:01] LABS: HEMATOCRIT 22.5 % (32.4-45.2); MCHC 30.9 g/dl (32.0-36.0); MEAN CELL VOLUME 80.9 fl (80-96); MEAN PLT VOLUME 9.4 fl (7.5-11.1); PLATELET COUNT 169 10^3/uL (134-434); RBC 2.78 M/mm3 (3.60-5.2); RDW 19.8 % (11.6-15.6)
[2023-06-28 07:11] LABS: CHLORIDE 69 mmol/L (98-107); POTASSIUM 3.7 mmol/L (3.5-5.1)
[2023-06-28 07:14] LABS: ALBUMIN 1.2 g/dl (3.4-5.0); CO2 27 mmol/L (21-32); GLUCOSE,RANDOM 103 mg/dL (74-106)
[2023-06-28 07:17] LABS: CREATININE 2.4 mg/dL (0.55-1.3); SGOT/AST 389 U/L (15-37); SGPT/ALT 505 U/L (13-61)
[2023-06-28 07:19] LABS: BILIRUBIN,TOTAL 0.9 mg/dL (0.2-1); TOT PROT 4.4 g/dl (6.4-8.2)
[2023-06-28 07:20] LABS: ALK PHOS 464 U/L (45-117)
[2023-06-28 07:38] LABS: ANION GAP 21 mmol/L (4-13); BLOOD UREA NITROGEN 115.9 mg/dL (7-18); CALCIUM 6.5 mg/dL (8.5-10.1); SODIUM 117 mmol/L (136-145)
[2023-06-28 07:46] LABS: WHITE BLOOD COUNT 26.5 K/mm3 (4.0-10.0)
[2023-06-28 08:26] LABS: PHOSPHOROUS 8.9 mg/dL (2.5-4.9)
[2023-06-28] MEDS: CEFTRIAXONE 2 GM in DEXTROSE 5%-WATER 100 ML IVPB SCH (09:40)
[2023-06-28] MEDS: PANTOPRAZOLE SODIUM 40 MG VIAL IVPUSH SCH (09:40)
[2023-06-28] MEDS: SEVELAMER CARBONATE 0.8 GM POWDER PACKET GT SCH ×3 (09:40→17:04)
[2023-06-28] MEDS: ARTIFICIAL TEARS OPHTHALMIC DROPS OU SCH ×2 (09:40→21:04)
[2023-06-28] MEDS: MIDODRINE HCL 5 MG TABLET PO SCH ×3 (09:40→23:03)
[2023-06-28] MEDS: AMINO ACIDS/PROTEIN HYDROLYS 30 ML LIQUID.PKT PO SCH ×2 (09:40→17:04)
[2023-06-28] MEDS ORDERED: ALBUMIN HUMAN 25% 100 ML VIAL IV ONE ×2 (13:00→21:30)
[2023-06-28] MEDS: FUROSEMIDE 40 MG/4 ML INJECTABLE VIAL IVPUSH SCH ×2 (13:46→21:02)
[2023-06-28] MEDS: levETIRAcetam 500 MG/5 ML INJECTION VIAL IVPB SCH ×2 (20:39→22:25)
[2023-06-28] MEDS: OLANZapine 10 MG TABLET GT SCH (21:02)
[2023-06-28] MEDS: CHLORHEXIDINE GLUCONATE 4% CLEANSER FOR DECOLONIZATION TP SCH (21:04)
[2023-06-29] MEDS: NOREPINEPHRINE BITARTRATE/D5W 8 MG/250 ML BAG IVPB SCH ×4 (00:20→20:00)
[2023-06-29] MEDS: HYDROCORTISONE SOD SUCCINATE 100 MG/2 ML VIAL IVPUSH SCH ×3 (01:04→17:15)
[2023-06-29] MEDS: FENTANYL NS IVPB 500 MCG/100 ML BAG IVPB SCH ×4 (04:00→18:27)
[2023-06-29] MEDS: FUROSEMIDE 40 MG/4 ML INJECTABLE VIAL IVPUSH SCH ×3 (05:31→21:07)
[2023-06-29] MEDS: PROPOFOL 1,000,000 MCG/100 ML VIAL IVPB SCH ×3 (06:36→20:30)
[2023-06-29 07:23] LABS: HEMATOCRIT 20.7 % (32.4-45.2); MCH 25.8 pg (25.7-33.7); MCHC 31.8 g/dl (32.0-36.0); MEAN CELL VOLUME 81.2 fl (80-96); MEAN PLT VOLUME 10.4 fl (7.5-11.1); PLATELET COUNT 171 10^3/uL (134-434); RBC 2.55 M/mm3 (3.60-5.2); RDW 18.6 % (11.6-15.6)
[2023-06-29 07:41] LABS: HEMOGLOBIN 6.6 GM/dL (10.7-15.3)
[2023-06-29 07:42] LABS: WHITE BLOOD COUNT 26.3 K/mm3 (4.0-10.0)
[2023-06-29 07:43] LABS: CHLORIDE 68 mmol/L (98-107); POTASSIUM 3.8 mmol/L (3.5-5.1)
[2023-06-29 07:52] LABS: CO2 25 mmol/L (21-32); GLUCOSE,RANDOM 107 mg/dL (74-106)
[2023-06-29 07:54] LABS: SGPT/ALT 307 U/L (13-61)
[2023-06-29 07:55] LABS: CREATININE 2.3 mg/dL (0.55-1.3); SGOT/AST 164 U/L (15-37)
[2023-06-29 07:56] LABS: BILIRUBIN,TOTAL 1.1 mg/dL (0.2-1); TOT PROT 4.5 g/dl (6.4-8.2)
[2023-06-29 07:58] LABS: ALK PHOS 462 U/L (45-117)
[2023-06-29] MEDS: MIDODRINE HCL 5 MG TABLET PO SCH ×2 (08:15→16:31)
[2023-06-29] MEDS: AMINO ACIDS/PROTEIN HYDROLYS 30 ML LIQUID.PKT PO SCH ×2 (08:15→16:31)
[2023-06-29] MEDS: SEVELAMER CARBONATE 0.8 GM POWDER PACKET GT SCH ×3 (09:08→16:31)
[2023-06-29] MEDS: CEFTRIAXONE 2 GM in DEXTROSE 5%-WATER 100 ML IVPB SCH (09:08)
[2023-06-29] MEDS: levETIRAcetam 500 MG/5 ML INJECTION VIAL IVPB SCH ×2 (09:08→21:07)
[2023-06-29] MEDS: ARTIFICIAL TEARS OPHTHALMIC DROPS OU SCH ×2 (09:09→21:26)
[2023-06-29] MEDS: PANTOPRAZOLE SODIUM 40 MG VIAL IVPUSH SCH (09:09)
[2023-06-29 09:27] LABS: ALBUMIN 1.6 g/dl (3.4-5.0); ANION GAP 25 mmol/L (4-13); BLOOD UREA NITROGEN 107.2 mg/dL (7-18); CALCIUM 6.2 mg/dL (8.5-10.1); SODIUM 118 mmol/L (136-145)
[2023-06-29] MEDS ORDERED: MIDAZOLAM IN 0.9 % SOD.CHLORID 1 MG/1 ML PLAST..BAG ONE (09:51)
[2023-06-29] MEDS: MIDAZOLAM 100 MG in SODIUM CHLORIDE 100 ML IVPB SCH ×2 (09:53→20:00)
[2023-06-29] MEDS: CHLORHEXIDINE GLUCONATE 4% CLEANSER FOR DECOLONIZATION TP SCH (21:07)
[2023-06-29] MEDS: VASopressin 40 UNITS/100 ML BAG IV SCH (21:09)
[2023-06-29] MEDS: OLANZapine 10 MG TABLET GT SCH (21:25)
[2023-06-30] MEDS: FENTANYL NS IVPB 500 MCG/100 ML BAG IVPB SCH ×4 (00:30→16:43)
[2023-06-30] MEDS: NOREPINEPHRINE BITARTRATE/D5W 8 MG/250 ML BAG IVPB SCH ×3 (00:55→17:41)
[2023-06-30] MEDS: MIDODRINE HCL 5 MG TABLET PO SCH ×3 (00:55→16:33)
[2023-06-30] MEDS: PROPOFOL 1,000,000 MCG/100 ML VIAL IVPB SCH ×2 (01:00→16:33)
[2023-06-30] MEDS: HYDROCORTISONE SOD SUCCINATE 100 MG/2 ML VIAL IVPUSH SCH ×3 (01:01→17:41)
[2023-06-30] MEDS: FUROSEMIDE 40 MG/4 ML INJECTABLE VIAL IVPUSH SCH ×3 (05:23→20:59)
[2023-06-30 07:27] LABS: HEMATOCRIT 23.7 % (32.4-45.2); HEMOGLOBIN 7.7 GM/dL (10.7-15.3); MCH 26.6 pg (25.7-33.7); MCHC 32.5 g/dl (32.0-36.0); MEAN CELL VOLUME 81.8 fl (80-96); MEAN PLT VOLUME 10.1 fl (7.5-11.1); PLATELET COUNT 159 10^3/uL (134-434); RDW 18.8 % (11.6-15.6)
[2023-06-30 08:04] LABS: WHITE BLOOD COUNT 27.7 K/mm3 (4.0-10.0)
[2023-06-30] MEDS: AMINO ACIDS/PROTEIN HYDROLYS 30 ML LIQUID.PKT PO SCH ×2 (08:37→16:33)
[2023-06-30] MEDS: SEVELAMER CARBONATE 0.8 GM POWDER PACKET GT SCH ×3 (08:37→16:43)
[2023-06-30 08:57] LABS: CHLORIDE 69 mmol/L (98-107); POTASSIUM 3.7 mmol/L (3.5-5.1)
[2023-06-30] MEDS: CEFTRIAXONE 2 GM in DEXTROSE 5%-WATER 100 ML IVPB SCH (09:05)
[2023-06-30] MEDS: levETIRAcetam 500 MG/5 ML INJECTION VIAL IVPB SCH ×2 (09:05→20:59)
[2023-06-30] MEDS: PANTOPRAZOLE SODIUM 40 MG VIAL IVPUSH SCH (09:06)
[2023-06-30] MEDS: ARTIFICIAL TEARS OPHTHALMIC DROPS OU SCH ×2 (09:06→20:59)
[2023-06-30 09:09] LABS: ALBUMIN 1.5 g/dl (3.4-5.0); CO2 25 mmol/L (21-32); GLUCOSE,RANDOM 118 mg/dL (74-106); MAGNESIUM 1.9 mg/dL (1.8-2.4)
[2023-06-30 09:12] LABS: CREATININE 2.3 mg/dL (0.55-1.3); SGOT/AST 96 U/L (15-37); SGPT/ALT 207 U/L (13-61)
[2023-06-30 09:15] LABS: BILIRUBIN,TOTAL 1.1 mg/dL (0.2-1); TOT PROT 4.3 g/dl (6.4-8.2)
[2023-06-30 09:25] LABS: ALK PHOS 492 U/L (45-117); ANION GAP 23 mmol/L (4-13); BLOOD UREA NITROGEN 115.7 mg/dL (7-18); CALCIUM 5.8 mg/dL (8.5-10.1); SODIUM 117 mmol/L (136-145)
[2023-06-30 09:46] LABS: PHOSPHOROUS 8.8 mg/dL (2.5-4.9)
[2023-06-30 09:52] LABS: ANISOCYTOSIS 0; CORRECTED WBC 23.68 K/mm3; HELMET CELLS 0; HOWELL-JOLLY BODIES 0; MACROCYTOSIS 0; OVALOCYTE 0; ROULEAU 0; SICKELED CELLS 0; TARGET CELLS 0; TEAR DROP CELLS 0; TOXIC GRANULATION 0
[2023-06-30] MEDS: VASopressin 40 UNITS/100 ML BAG IV SCH ×2 (10:00→17:41)
[2023-06-30] MEDS ORDERED: LORazepam 2 MG/ML SDV VIAL IVPUSH ONE (11:05)
[2023-06-30] MEDS ORDERED: MIDAZOLAM IN 0.9 % SOD.CHLORID 1 MG/1 ML PLAST..BAG ONE (11:08)
[2023-06-30] MEDS ORDERED: MIDAZOLAM 100 MG in SODIUM CHLORIDE 100 ML IVPB SCH (11:30)
[2023-06-30] MEDS: MIDAZOLAM IN 0.9 % SOD.CHLORID 100 MG/100 ML PLAST..BAG IVPB SCH (16:34)
[2023-06-30] MEDS: OLANZapine 10 MG TABLET GT SCH (20:59)
[2023-06-30] MEDS: CHLORHEXIDINE GLUCONATE 4% CLEANSER FOR DECOLONIZATION TP SCH (20:59)
[2023-07-01] MEDS: FENTANYL NS IVPB 500 MCG/100 ML BAG IVPB SCH ×3 (00:03→17:19)
[2023-07-01] MEDS: VASopressin 40 UNITS/100 ML BAG IV SCH ×2 (00:10→13:55)
[2023-07-01] MEDS: MIDODRINE HCL 5 MG TABLET PO SCH ×3 (00:10→15:32)
[2023-07-01] MEDS: HYDROCORTISONE SOD SUCCINATE 100 MG/2 ML VIAL IVPUSH SCH ×3 (01:22→17:15)
[2023-07-01] MEDS: NOREPINEPHRINE BITARTRATE/D5W 8 MG/250 ML BAG IVPB SCH ×2 (02:25→13:56)
[2023-07-01] MEDS ORDERED: NOREPINEPHRINE BITARTRATE 4 MG/4 ML ML IV ONE (06:48)
[2023-07-01] MEDS: FUROSEMIDE 40 MG/4 ML INJECTABLE VIAL IVPUSH SCH ×3 (06:54→22:39)
[2023-07-01 07:55] LABS: HEMATOCRIT 23.5 % (32.4-45.2); HEMOGLOBIN 7.7 GM/dL (10.7-15.3); MCH 26.3 pg (25.7-33.7); MCHC 32.8 g/dl (32.0-36.0); MEAN CELL VOLUME 80.3 fl (80-96); MEAN PLT VOLUME 10.3 fl (7.5-11.1); PLATELET COUNT 152 10^3/uL (134-434); RBC 2.92 M/mm3 (3.60-5.2); RDW 19.3 % (11.6-15.6)
[2023-07-01 08:00] LABS: CHLORIDE 66 mmol/L (98-107); POTASSIUM 3.8 mmol/L (3.5-5.1)
[2023-07-01 08:05] LABS: ALBUMIN 1.4 g/dl (3.4-5.0); CO2 24 mmol/L (21-32); GLUCOSE,RANDOM 99 mg/dL (74-106); MAGNESIUM 1.8 mg/dL (1.8-2.4)
[2023-07-01 08:08] LABS: CREATININE 2.4 mg/dL (0.55-1.3); SGOT/AST 66 U/L (15-37); SGPT/ALT 138 U/L (13-61)
[2023-07-01 08:10] LABS: BILIRUBIN,TOTAL 1.2 mg/dL (0.2-1); TOT PROT 4.2 g/dl (6.4-8.2)
[2023-07-01 08:19] LABS: ALK PHOS 449 U/L (45-117); ANION GAP 24 mmol/L (4-13); BLOOD UREA NITROGEN 116.7 mg/dL (7-18); CALCIUM 6.1 mg/dL (8.5-10.1); SODIUM 114 mmol/L (136-145)
[2023-07-01 08:26] LABS: WHITE BLOOD COUNT 26.2 K/mm3 (4.0-10.0)
[2023-07-01] MEDS: AMINO ACIDS/PROTEIN HYDROLYS 30 ML LIQUID.PKT PO SCH ×2 (08:53→17:19)
[2023-07-01] MEDS: SEVELAMER CARBONATE 0.8 GM POWDER PACKET GT SCH ×2 (08:53→13:04)
[2023-07-01 09:15] LABS: PHOSPHOROUS 9.1 mg/dL (2.5-4.9)
[2023-07-01] MEDS: levETIRAcetam 500 MG/5 ML INJECTION VIAL IVPB SCH ×2 (09:25→22:04)
[2023-07-01] MEDS: PANTOPRAZOLE SODIUM 40 MG VIAL IVPUSH SCH (09:25)
[2023-07-01] MEDS: CEFTRIAXONE 2 GM in DEXTROSE 5%-WATER 100 ML IVPB SCH (09:26)
[2023-07-01] MEDS: ARTIFICIAL TEARS OPHTHALMIC DROPS OU SCH ×2 (09:26→22:04)
[2023-07-01] MEDS: PROPOFOL 1,000,000 MCG/100 ML VIAL IVPB SCH (16:55)
[2023-07-01] MEDS: MIDAZOLAM IN 0.9 % SOD.CHLORID 100 MG/100 ML PLAST..BAG IVPB SCH (17:17)
[2023-07-01] MEDS: SEVELAMER CARBONATE 2.4 GM POWDER PACKET GT SCH (17:30)
[2023-07-01] MEDS ORDERED: RAPID SEQUENCE INTUBATION KIT NR ONE (19:41)
[2023-07-01] MEDS: LORazepam 2 MG/ML SDV VIAL IVPUSH PRN (20:34)
[2023-07-01] MEDS: CHLORHEXIDINE GLUCONATE 4% CLEANSER FOR DECOLONIZATION TP SCH (22:04)
[2023-07-01] MEDS: OLANZapine 10 MG TABLET GT SCH (22:05)
[2023-07-02] MEDS: MIDODRINE HCL 5 MG TABLET PO SCH ×4 (00:21→23:59)
[2023-07-02] MEDS: HYDROCORTISONE SOD SUCCINATE 100 MG/2 ML VIAL IVPUSH SCH ×3 (01:28→22:01)
[2023-07-02] MEDS: NOREPINEPHRINE BITARTRATE/D5W 8 MG/250 ML BAG IVPB SCH ×2 (03:33→07:45)
[2023-07-02] MEDS: FENTANYL NS IVPB 500 MCG/100 ML BAG IVPB SCH ×2 (03:34→09:40)
[2023-07-02] MEDS: FUROSEMIDE 40 MG/4 ML INJECTABLE VIAL IVPUSH SCH ×3 (07:21→22:00)
[2023-07-02] MEDS: LORazepam 2 MG/ML SDV VIAL IVPUSH PRN ×2 (07:33→14:04)
[2023-07-02] MEDS ORDERED: HYDROCORTISONE SOD SUCCINATE 100 MG/2 ML VIAL IVPUSH SCH ×2 (08:15→08:17)
[2023-07-02] MEDS: AMINO ACIDS/PROTEIN HYDROLYS 30 ML LIQUID.PKT PO SCH ×2 (08:36→17:07)
[2023-07-02] MEDS: SEVELAMER CARBONATE 2.4 GM POWDER PACKET GT SCH ×3 (08:36→17:07)
[2023-07-02] MEDS: PANTOPRAZOLE SODIUM 40 MG VIAL IVPUSH SCH (10:15)
[2023-07-02] MEDS: ARTIFICIAL TEARS OPHTHALMIC DROPS OU SCH ×2 (10:16→22:01)
[2023-07-02] MEDS: CEFTRIAXONE 2 GM in DEXTROSE 5%-WATER 100 ML IVPB SCH (10:16)
[2023-07-02] MEDS: levETIRAcetam 500 MG/5 ML INJECTION VIAL IVPB SCH ×2 (10:48→22:00)
[2023-07-02] MEDS: PROPOFOL 1,000,000 MCG/100 ML VIAL IVPB SCH (11:05)
[2023-07-02] MEDS: VASopressin 40 UNITS/100 ML BAG IV SCH (11:25)
[2023-07-02] MEDS: MIDAZOLAM IN 0.9 % SOD.CHLORID 100 MG/100 ML PLAST..BAG IVPB SCH (12:24)
[2023-07-02] MEDS: PHENYLEPHRINE HCL 50,000 MCG in SODIUM CHLORIDE 500 ML IV SCH (16:08)
[2023-07-02] MEDS: NOREPINEPHRINE 0.9 % NACL 8 MG/250 ML BAG IVPB SCH (17:06)
[2023-07-02] MEDS: OLANZapine 10 MG TABLET GT SCH (22:01)
[2023-07-02] MEDS: CHLORHEXIDINE GLUCONATE 4% CLEANSER FOR DECOLONIZATION TP SCH (22:01)
[2023-07-03] MEDS: PROPOFOL 1,000,000 MCG/100 ML VIAL IVPB SCH ×3 (01:58→21:13)
[2023-07-03] MEDS: NOREPINEPHRINE 0.9 % NACL 8 MG/250 ML BAG IVPB SCH ×3 (01:59→20:40)
[2023-07-03] MEDS: FENTANYL NS IVPB 500 MCG/100 ML BAG IVPB SCH ×3 (02:27→20:00)
[2023-07-03] MEDS: PHENYLEPHRINE HCL 50,000 MCG in SODIUM CHLORIDE 500 ML IV SCH ×3 (05:00→23:08)
[2023-07-03] MEDS: FUROSEMIDE 40 MG/4 ML INJECTABLE VIAL IVPUSH SCH ×3 (05:37→21:15)
[2023-07-03 07:24] LABS: HEMATOCRIT 23.8 % (32.4-45.2); HEMOGLOBIN 7.6 GM/dL (10.7-15.3); MCH 25.9 pg (25.7-33.7); MCHC 32.1 g/dl (32.0-36.0); MEAN CELL VOLUME 80.6 fl (80-96); MEAN PLT VOLUME 10.1 fl (7.5-11.1); PLATELET COUNT 135 10^3/uL (134-434); RBC 2.96 M/mm3 (3.60-5.2); RDW 19.4 % (11.6-15.6); WHITE BLOOD COUNT 23.4 K/mm3 (4.0-10.0)
[2023-07-03 07:28] LABS: CHLORIDE 70 mmol/L (98-107); POTASSIUM 3.3 mmol/L (3.5-5.1)
[2023-07-03 07:33] LABS: CO2 20 mmol/L (21-32); GLUCOSE,RANDOM 111 mg/dL (74-106)
[2023-07-03 07:36] LABS: CREATININE 2.2 mg/dL (0.55-1.3)
[2023-07-03 07:45] LABS: ANION GAP 24 mmol/L (4-13); BLOOD UREA NITROGEN 120.3 mg/dL (7-18); CALCIUM 6.5 mg/dL (8.5-10.1); SODIUM 114 mmol/L (136-145)
[2023-07-03] MEDS ORDERED: POTASSIUM CHLORIDE ORAL LIQUID 20 MEQ/15 ML PO ONE (07:48)
[2023-07-03] MEDS: HYDROCORTISONE SOD SUCCINATE 100 MG/2 ML VIAL IVPUSH SCH ×2 (10:00→21:15)
[2023-07-03] MEDS: ARTIFICIAL TEARS OPHTHALMIC DROPS OU SCH ×2 (10:21→21:14)
[2023-07-03] MEDS: levETIRAcetam 500 MG/5 ML INJECTION VIAL IVPB SCH ×2 (10:21→21:14)
[2023-07-03] MEDS: PANTOPRAZOLE SODIUM 40 MG VIAL IVPUSH SCH (10:22)
[2023-07-03] MEDS: CEFTRIAXONE 2 GM in DEXTROSE 5%-WATER 100 ML IVPB SCH (10:22)
[2023-07-03] MEDS: MIDODRINE HCL 5 MG TABLET PO SCH ×3 (11:18→23:10)
[2023-07-03] MEDS: AMINO ACIDS/PROTEIN HYDROLYS 30 ML LIQUID.PKT PO SCH ×2 (11:18→17:46)
[2023-07-03] MEDS: SEVELAMER CARBONATE 2.4 GM POWDER PACKET GT SCH ×3 (11:21→17:46)
[2023-07-03] MEDS ORDERED: PHENYLEPHRINE HCL 10 MG/1 ML SINGLE DOSE VIAL ONE (11:33)
[2023-07-03] MEDS: MIDAZOLAM IN 0.9 % SOD.CHLORID 100 MG/100 ML PLAST..BAG IVPB SCH ×2 (12:30→20:00)
[2023-07-03] MEDS: OLANZapine 10 MG TABLET GT SCH (21:15)
[2023-07-03] MEDS: CHLORHEXIDINE GLUCONATE 4% CLEANSER FOR DECOLONIZATION TP SCH (21:15)
[2023-07-04] MEDS: FENTANYL NS IVPB 500 MCG/100 ML BAG IVPB SCH ×3 (03:00→20:16)
[2023-07-04] MEDS: PHENYLEPHRINE HCL 50,000 MCG in SODIUM CHLORIDE 500 ML IV SCH ×3 (04:00→20:17)
[2023-07-04] MEDS: FUROSEMIDE 40 MG/4 ML INJECTABLE VIAL IVPUSH SCH ×3 (05:43→21:40)
[2023-07-04] MEDS: NOREPINEPHRINE 0.9 % NACL 8 MG/250 ML BAG IVPB SCH ×3 (06:00→20:14)
[2023-07-04] MEDS: MIDAZOLAM IN 0.9 % SOD.CHLORID 100 MG/100 ML PLAST..BAG IVPB SCH (06:00)
[2023-07-04 07:08] LABS: HEMATOCRIT 22.5 % (32.4-45.2); MCH 25.4 pg (25.7-33.7); MCHC 31.3 g/dl (32.0-36.0); MEAN CELL VOLUME 81.1 fl (80-96); MEAN PLT VOLUME 10.2 fl (7.5-11.1); PLATELET COUNT 112 10^3/uL (134-434); RBC 2.77 M/mm3 (3.60-5.2); RDW 19.2 % (11.6-15.6)
[2023-07-04 07:13] LABS: CHLORIDE 73 mmol/L (98-107); POTASSIUM 3.4 mmol/L (3.5-5.1)
[2023-07-04 07:16] LABS: ALBUMIN 1.1 g/dl (3.4-5.0); CO2 20 mmol/L (21-32); GLUCOSE,RANDOM 84 mg/dL (74-106); MAGNESIUM 1.5 mg/dL (1.8-2.4)
[2023-07-04 07:18] LABS: SGPT/ALT 52 U/L (13-61)
[2023-07-04 07:19] LABS: CREATININE 2.1 mg/dL (0.55-1.3); PHOSPHOROUS 8.3 mg/dL (2.5-4.9); SGOT/AST 46 U/L (15-37)
[2023-07-04 07:20] LABS: BILIRUBIN,TOTAL 0.9 mg/dL (0.2-1); TOT PROT 3.7 g/dl (6.4-8.2)
[2023-07-04 07:23] LABS: ALK PHOS 385 U/L (45-117); ANION GAP 23 mmol/L (4-13); BLOOD UREA NITROGEN 121.5 mg/dL (7-18); CALCIUM 6.2 mg/dL (8.5-10.1); SODIUM 116 mmol/L (136-145)
[2023-07-04] MEDS ORDERED: MAGNESIUM 2GM/50ML STERILE WATER IVPB IVPB ONE (07:34)
[2023-07-04 07:36] LABS: WHITE BLOOD COUNT 30.2 K/mm3 (4.0-10.0)
[2023-07-04] MEDS: AMINO ACIDS/PROTEIN HYDROLYS 30 ML LIQUID.PKT PO SCH ×2 (08:19→17:21)
[2023-07-04] MEDS: MIDODRINE HCL 5 MG TABLET PO SCH ×3 (08:19→23:43)
[2023-07-04] MEDS: SEVELAMER CARBONATE 2.4 GM POWDER PACKET GT SCH ×3 (08:20→17:21)
[2023-07-04] MEDS ORDERED: PHENYLEPHRINE HCL 10 MG/1 ML SINGLE DOSE VIAL ONE ×2 (09:45→15:05)
[2023-07-04] MEDS: ARTIFICIAL TEARS OPHTHALMIC DROPS OU SCH ×2 (10:20→21:49)
[2023-07-04] MEDS: levETIRAcetam 500 MG/5 ML INJECTION VIAL IVPB SCH ×2 (10:20→21:40)
[2023-07-04] MEDS: CEFTRIAXONE 2 GM in DEXTROSE 5%-WATER 100 ML IVPB SCH (11:20)
[2023-07-04] MEDS: HYDROCORTISONE SOD SUCCINATE 100 MG/2 ML VIAL IVPUSH SCH ×2 (11:20→21:40)
[2023-07-04] MEDS: PANTOPRAZOLE SODIUM 40 MG VIAL IVPUSH SCH (11:20)
[2023-07-04] MEDS: PROPOFOL 1,000,000 MCG/100 ML VIAL IVPB SCH (11:27)
[2023-07-04] MEDS: OLANZapine 10 MG TABLET GT SCH (21:40)
[2023-07-04] MEDS: CHLORHEXIDINE GLUCONATE 4% CLEANSER FOR DECOLONIZATION TP SCH (21:49)
[2023-07-05] MEDS: PROPOFOL 1,000,000 MCG/100 ML VIAL IVPB SCH ×3 (01:09→21:13)
[2023-07-05] MEDS: FENTANYL NS IVPB 500 MCG/100 ML BAG IVPB SCH ×3 (01:09→21:12)
[2023-07-05] MEDS: PHENYLEPHRINE HCL 50,000 MCG in SODIUM CHLORIDE 500 ML IV SCH ×3 (01:14→22:03)
[2023-07-05] MEDS ORDERED: CALCIUM CHLORIDE 1 GM/10 ML *DISP.SYRIN IVPB ONE (02:36)
[2023-07-05] MEDS ORDERED: MAGNESIUM SULF 50% (8.12 MEQ/2 ML-1 GM VIAL) ONE (02:55)
[2023-07-05] MEDS: MIDAZOLAM IN 0.9 % SOD.CHLORID 100 MG/100 ML PLAST..BAG IVPB SCH (03:00)
[2023-07-05] MEDS ORDERED: MAGNESIUM SULFATE IN WATER 2 GM/50 ML IVPB IVPB ONE (03:12)
[2023-07-05] MEDS: NOREPINEPHRINE 0.9 % NACL 8 MG/250 ML BAG IVPB SCH ×3 (04:56→22:13)
[2023-07-05] MEDS: FUROSEMIDE 40 MG/4 ML INJECTABLE VIAL IVPUSH SCH ×3 (06:20→21:11)
[2023-07-05 06:22] LABS: HEMATOCRIT 21.4 % (32.4-45.2); MCHC 32.1 g/dl (32.0-36.0); MEAN CELL VOLUME 80.9 fl (80-96); MEAN PLT VOLUME 10.2 fl (7.5-11.1); PLATELET COUNT 76 10^3/uL (134-434); RBC 2.64 M/mm3 (3.60-5.2); RDW 18.9 % (11.6-15.6)
[2023-07-05 06:23] LABS: WHITE BLOOD COUNT 27.1 K/mm3 (4.0-10.0)
[2023-07-05 06:24] LABS: HEMOGLOBIN 6.9 GM/dL (10.7-15.3)
[2023-07-05 06:44] LABS: CHLORIDE 77 mmol/L (98-107); POTASSIUM 3.3 mmol/L (3.5-5.1)
[2023-07-05 06:53] LABS: CALCIUM 7.1 mg/dL (8.5-10.1)
[2023-07-05 06:54] LABS: ALBUMIN 1.1 g/dl (3.4-5.0); CO2 18 mmol/L (21-32); GLUCOSE,RANDOM 75 mg/dL (74-106); MAGNESIUM 2.2 mg/dL (1.8-2.4)
[2023-07-05 06:57] LABS: SGOT/AST 42 U/L (15-37); SGPT/ALT 43 U/L (13-61)
[2023-07-05 06:58] LABS: TOT PROT 3.7 g/dl (6.4-8.2)
[2023-07-05 07:00] LABS: ALK PHOS 375 U/L (45-117)
[2023-07-05 07:16] LABS: ANION GAP 24 mmol/L (4-13); BLOOD UREA NITROGEN 116.4 mg/dL (7-18); SODIUM 118 mmol/L (136-145)
[2023-07-05] MEDS ORDERED: POTASSIUM CHLORIDE ORAL LIQUID 20 MEQ/15 ML GT ONE (07:33)
[2023-07-05] MEDS: SEVELAMER CARBONATE 2.4 GM POWDER PACKET GT SCH ×3 (09:35→17:08)
[2023-07-05] MEDS: CEFTRIAXONE 2 GM in DEXTROSE 5%-WATER 100 ML IVPB SCH (09:35)
[2023-07-05] MEDS: PANTOPRAZOLE SODIUM 40 MG VIAL IVPUSH SCH (09:35)
[2023-07-05] MEDS: MIDODRINE HCL 5 MG TABLET PO SCH ×3 (09:35→23:37)
[2023-07-05] MEDS: levETIRAcetam 500 MG/5 ML INJECTION VIAL IVPB SCH ×2 (09:35→21:11)
[2023-07-05] MEDS: ARTIFICIAL TEARS OPHTHALMIC DROPS OU SCH ×2 (09:35→21:11)
[2023-07-05] MEDS: HYDROCORTISONE SOD SUCCINATE 100 MG/2 ML VIAL IVPUSH SCH ×2 (09:35→21:11)
[2023-07-05] MEDS: AMINO ACIDS/PROTEIN HYDROLYS 30 ML LIQUID.PKT PO SCH ×2 (09:35→17:08)
[2023-07-05] MEDS: LORazepam 2 MG/ML SDV VIAL IVPUSH PRN (10:52)
[2023-07-05] MEDS ORDERED: PHENYLEPHRINE HCL 10 MG/1 ML SINGLE DOSE VIAL ONE (16:44)
[2023-07-05] MEDS: CHLORHEXIDINE GLUCONATE 4% CLEANSER FOR DECOLONIZATION TP SCH (21:11)
[2023-07-05] MEDS: OLANZapine 10 MG TABLET GT SCH (21:12)
[2023-07-06] MEDS: NOREPINEPHRINE 0.9 % NACL 8 MG/250 ML BAG IVPB SCH ×5 (02:30→19:00)
[2023-07-06] MEDS: PHENYLEPHRINE HCL 50,000 MCG in SODIUM CHLORIDE 500 ML IV SCH ×4 (02:30→17:24)
[2023-07-06] MEDS: FENTANYL NS IVPB 500 MCG/100 ML BAG IVPB SCH ×4 (03:05→14:42)
[2023-07-06] MEDS: MIDAZOLAM IN 0.9 % SOD.CHLORID 100 MG/100 ML PLAST..BAG IVPB SCH ×2 (06:09→14:43)
[2023-07-06] MEDS: FUROSEMIDE 40 MG/4 ML INJECTABLE VIAL IVPUSH SCH ×3 (06:09→21:59)
[2023-07-06] MEDS: PROPOFOL 1,000,000 MCG/100 ML VIAL IVPB SCH ×2 (08:00→14:42)
[2023-07-06] MEDS: PANTOPRAZOLE SODIUM 40 MG VIAL IVPUSH SCH (09:21)
[2023-07-06] MEDS: SEVELAMER CARBONATE 2.4 GM POWDER PACKET GT SCH ×3 (09:21→17:23)
[2023-07-06] MEDS: CEFTRIAXONE 2 GM in DEXTROSE 5%-WATER 100 ML IVPB SCH (09:21)
[2023-07-06] MEDS: levETIRAcetam 500 MG/5 ML INJECTION VIAL IVPB SCH ×2 (09:21→21:57)
[2023-07-06] MEDS: AMINO ACIDS/PROTEIN HYDROLYS 30 ML LIQUID.PKT PO SCH ×2 (09:22→17:24)
[2023-07-06] MEDS: MIDODRINE HCL 5 MG TABLET PO SCH ×3 (09:22→23:26)
[2023-07-06] MEDS: LORazepam 2 MG/ML SDV VIAL IVPUSH PRN (09:22)
[2023-07-06] MEDS: HYDROCORTISONE SOD SUCCINATE 100 MG/2 ML VIAL IVPUSH SCH ×2 (09:23→21:59)
[2023-07-06] MEDS: ARTIFICIAL TEARS OPHTHALMIC DROPS OU SCH ×2 (10:43→21:58)
[2023-07-06] MEDS: CHLORHEXIDINE GLUCONATE 4% CLEANSER FOR DECOLONIZATION TP SCH (21:58)
[2023-07-06] MEDS: OLANZapine 10 MG TABLET GT SCH (22:04)
[2023-07-07] MEDS: MIDAZOLAM IN 0.9 % SOD.CHLORID 100 MG/100 ML PLAST..BAG IVPB SCH ×3 (01:30→18:05)
[2023-07-07] MEDS: PROPOFOL 1,000,000 MCG/100 ML VIAL IVPB SCH ×2 (03:59→12:09)
[2023-07-07] MEDS: FUROSEMIDE 40 MG/4 ML INJECTABLE VIAL IVPUSH SCH ×3 (07:07→21:18)
[2023-07-07] MEDS: FENTANYL NS IVPB 500 MCG/100 ML BAG IVPB SCH ×3 (08:07→18:05)
[2023-07-07] MEDS: PHENYLEPHRINE HCL 50,000 MCG in SODIUM CHLORIDE 500 ML IV SCH ×3 (09:07→15:21)
[2023-07-07] MEDS: NOREPINEPHRINE 0.9 % NACL 8 MG/250 ML BAG IVPB SCH ×4 (09:37→18:05)
[2023-07-07] MEDS: PANTOPRAZOLE SODIUM 40 MG VIAL IVPUSH SCH (10:22)
[2023-07-07] MEDS: levETIRAcetam 500 MG/5 ML INJECTION VIAL IVPB SCH ×2 (10:22→21:18)
[2023-07-07] MEDS: MIDODRINE HCL 5 MG TABLET PO SCH ×2 (10:22→17:11)
[2023-07-07] MEDS: CEFTRIAXONE 2 GM in DEXTROSE 5%-WATER 100 ML IVPB SCH (10:23)
[2023-07-07] MEDS: HYDROCORTISONE SOD SUCCINATE 100 MG/2 ML VIAL IVPUSH SCH ×2 (10:23→21:18)
[2023-07-07] MEDS: ARTIFICIAL TEARS OPHTHALMIC DROPS OU SCH ×2 (10:23→21:19)
[2023-07-07] MEDS: AMINO ACIDS/PROTEIN HYDROLYS 30 ML LIQUID.PKT PO SCH ×2 (10:23→17:11)
[2023-07-07] MEDS: SEVELAMER CARBONATE 2.4 GM POWDER PACKET GT SCH ×3 (10:23→17:11)
[2023-07-07 11:09] VITALS: TEMP 96.9
[2023-07-07 18:18] VITALS: BP 35/24
[2023-07-07] MEDS: CHLORHEXIDINE GLUCONATE 4% CLEANSER FOR DECOLONIZATION TP SCH (21:18)
[2023-07-07] MEDS: OLANZapine 10 MG TABLET GT SCH (22:34)
[2023-07-08 00:08] VITALS: RESP 26
[2023-07-08] MEDS: MIDODRINE HCL 5 MG TABLET PO SCH (00:23)
[2023-07-08 04:21] VITALS: PULSE 23
== END 2023-07-08 05:30 | disposition expired | DRG 720 ==
LOC: JER 07:42 → JERBED 09:13 → JICU 12:08
PROVIDERS: ADMIT Internal Medicine; ATTEND Internal Medicine
PROC: 5A1955Z Respiratory Ventilation, Greater than 96 Consecutive Hours (ICD-10-PCS; principal; 2023-05-27)
PROC: 0BH17EZ Insertion of Endotracheal Airway into Trachea, Via Natural or Artificial Opening (ICD-10-PCS; 2023-05-27)
PROC: 05HN33Z Insertion of Infusion Device into Left Internal Jugular Vein, Percutaneous Approach (ICD-10-PCS; 2023-05-27)
PROC: 30233N1 Transfusion of Nonautologous Red Blood Cells into Peripheral Vein, Percutaneous Approach (ICD-10-PCS; 2023-06-05)
PROC: 05HM33Z Insertion of Infusion Device into Right Internal Jugular Vein, Percutaneous Approach (ICD-10-PCS; 2023-06-07)
PROC: B543ZZA Ultrasonography of Right Jugular Veins, Guidance (ICD-10-PCS; 2023-06-07)
PROC: 05HN33Z Insertion of Infusion Device into Left Internal Jugular Vein, Percutaneous Approach (ICD-10-PCS; 2023-06-19)
PROC: B544ZZA Ultrasonography of Left Jugular Veins, Guidance (ICD-10-PCS; 2023-06-19)
PROC: 05HM33Z Insertion of Infusion Device into Right Internal Jugular Vein, Percutaneous Approach (ICD-10-PCS; 2023-06-28)
PROC: B543ZZA Ultrasonography of Right Jugular Veins, Guidance (ICD-10-PCS; 2023-06-28)
DX: A41.9 Sepsis, unspecified organism (principal); G92.8 Other toxic encephalopathy; G93.6 Cerebral edema; I47.20 Ventricular tachycardia, unspecified; J96.01 Acute respiratory failure with hypoxia; J98.59 Other diseases of mediastinum, not elsewhere classified; R65.21 Severe sepsis with septic shock; C78.6 Secondary malignant neoplasm of retroperitoneum and peritoneum; E87.4 Mixed disorder of acid-base balance; J18.8 Other pneumonia, unspecified organism; C78.7 Secondary malignant neoplasm of liver and intrahepatic bile duct; E87.0 Hyperosmolality and hypernatremia; E87.1 Hypo-osmolality and hyponatremia; G82.20 Paraplegia, unspecified; C34.91 Malignant neoplasm of unspecified part of right bronchus or lung; N17.9 Acute kidney failure, unspecified; D64.9 Anemia, unspecified
CPT/HCPCS: 0241U-QW; 36415; 36430; 36600; 70450-TC; 71045-TC-FY; 76700-TC; 80048; 80053; 80076; 81003; 82272; 82550; 82553; 82570; 82803; 82962; 83010; 83605; 83615; 83735; 83880; 83935; 84100; 84156; 84300; 84439; 84443; 84484; 84540; 85025; 85027; 85384; 85610; 85730; 86850; 86870; 86880; 86900; 86901; 86902; 86922; 87040; 87070; 87077; 87081; 87086; 87186; 87205; 87324; 87449; 87899; 93005; 93010; 93306-TC; 93970-TC; 94002; 99285-25; G0480; J3490; P9058